=== PATIENT | male | born 1950 | race Caucasian/White ===

== ENCOUNTER 2019-04-27 16:35 | Observation (INO) ==
[2019-04-27] MEDS ORDERED: *HR* Dextrose 50 % in Water (Syg) 50 ML SYRINGE IVP ONE (16:45)
[2019-04-27 16:53] LABS: Hematocrit 39.2 % (37.5-50.1); Hemoglobin 13.4 g/dL (12.9-16.9); Mean Corpuscular HGB Conc 34.2 g/dL (31.6-35.5); Mean Corpuscular Hemoglobin 32.4 pg (28.0-33.3); Mean Corpuscular Volume 94.7 fL (83.0-100.0); Mean Platelet Volume 14.2 fL (9.4-12.4); Red Blood Count 4.14 M/mcL (4.19-5.50); White Blood Count 10.7 K/mcL (4.3-11.1)
[2019-04-27 17:02] LABS: INR 1.5; Prothrombin Time 16.9 Seconds (9.4-12.1)
[2019-04-27 17:05] LABS: Activated Partial Thrombo Time 32.4 Seconds (26.0-36.0)
[2019-04-27 17:12] LABS: Alanine Aminotransferase 19 Units/L (7-52); Albumin 3.4 g/dL (3.5-5.7); Albumin/Globulin Ratio 1.5 (1.1-2.2); Alkaline Phosphatase 50 Units/L (34-104); Aspartate Amino Transferase 18 Units/L (13-39); BUN/Creatinine Ratio 26 (6-26); Bilirubin,Direct 0.1 mg/dL (0.0-0.2); Bilirubin,Indirect 0.2 mg/dL (0.0-1.2); Bilirubin,Total 0.3 mg/dL (0.3-1.0); Blood Urea Nitrogen 16 mg/dL (8-23); Calcium 8.4 mg/dL (8.6-10.3); Carbon Dioxide 31 mEq/L (23-29); Chloride 104 mEq/L (98-107); Globulin 2.2 g/dL (2.4-3.5); Glucose 57 mg/dL (70-105); Osmolality,Calculated 301 (280-300); Platelet Count 96 K/mcL (140-400); Potassium 3.5 mEq/L (3.5-5.1); Sodium 146 mEq/L (136-145); Total Protein 5.6 g/dL (6.4-8.9); eGFR For African Americans > 60 (> 60); eGFR For Non-African Americans > 60 (> 60)
[2019-04-27 18:15] LABS: Troponin I < 0.03 ng/mL (< 0.04)
[2019-04-27] MEDS ORDERED: Isovue-370 500 ML BOTTLE IVP ONE (18:58)
--- NOTE | 2019-04-27 19:35 | Emergency Department Note ---
Disposition Clinical Impression: Altered mental status Qualifiers: Altered mental status type: unspecified Qualified Code(s): R41.82 - Altered mental status, unspecified Disposition: Admitted As Inpatient Condition: Fair [facility] Care Provider[facility] - Forms: ED Satisfaction Letter Time of Disposition: 22:47 Altered Mental Status HPI - General Chief Complaint: ED Altered Mental Status Stated Complaint: AMS Time Seen by Provider: 04/27/19 16:38 Source: EMS Mode of arrival: EMS Limitations: altered mental status Nursing Notes Reviewed: Yes Vital Signs Reviewed: Yes - History of Present Illness HPI Narrative: 68-year-old male history of dementia and Alzheimer's presents to the emergency department with altered mental status. He alsoright-sided weakness. He stated right-sided weakness is chronic but worsened where his last known well was at 1430. Said he also was not his normal talkative self her normally is alert and oriented and able to talk to have a normal conversation. Due to this is all new. They have not noticed any fevers no coughing no congestion. Otherwise patient has no other complaints. - Related Data Home Medications Medication Instructions Recorded Confirmed Ibuprofen [Motrin] 600 mg PO Q8HR PRN 12/15/15 12/15/15 Lurasidone HCl [Latuda] 80 mg PO HS 12/15/15 12/15/15 Multivitamin [Multi-Day Vitamins] 1 each PO DAILY 12/15/15 12/15/15 Thiamine (B-1) [Vitamin B-1] 100 mg PO DAILY 12/15/15 12/15/15 Acetaminophen [Tylenol] 975 mg PO Q12H PRN 04/27/19 04/27/19 Atorvastatin Calcium [Lipitor] 20 mg PO DAILY 04/27/19 04/27/19 Cetirizine HCl 10 mg PO DAILY 04/27/19 04/27/19 Chlorpheniramine/Dextromethorp 1 each PO Q4H PRN 04/27/19 04/27/19 [Coricidin Hbp Cough & Cold Tab] Divalproex (24 HR) [Depakote ER 1,000 mg PO HS 04/27/19 04/27/19 (24 HR)] Divalproex (24 HR) [Depakote ER 750 mg PO [facility] 04/27/19 04/27/19 (24 HR)] Docusate [Colace] 100 mg PO BID 04/27/19 04/27/19 GuaiFENesin Liq [Robitussin Liq] 200 mg PO TID PRN 04/27/19 04/27/19 Ibuprofen [Ibu] 800 mg PO DAILY 04/27/19 04/27/19 Insulin Glargine,Hum.rec.anlog 18 unit SQ DAILY 04/27/19 04/27/19 [Basaglar Kwikpen U-100] Insulin Regular, Human [Novolin R] 3 - 8 unit SQ QID 04/27/19 04/27/19 Ipratropium/Albuterol Neb [Duoneb] 3 ml IH Q6HR 04/27/19 04/27/19 LORazepam [Ativan] 0.5 mg PO DAILY 04/27/19 04/27/19 Lactulose 10 gm PO BID 04/27/19 04/27/19 Melatonin 3 mg PO HS 04/27/19 04/27/19 Sertraline [Zoloft] 100 mg PO DAILY 04/27/19 04/27/19 Tizanidine HCl [Zanaflex] 2 mg PO Q12H PRN 04/27/19 04/27/19 Tramadol HCl [Ultram] 50 mg PO BID PRN 04/27/19 04/27/19 glipiZIDE [Glipizide] 10 mg PO BID 04/27/19 04/27/19 Allergies Allergy/AdvReac Type Severity Reaction Status Date / Time No Known Allergies Allergy Verified 06/10/16 15:46 Limitations: ROS unobtainable due to patients medical condition Past Medical History - Past Medical History Attestation: Yes The following information was validated with the patient. Source: unable to obtain, old records reviewed Medical history: Reports: COPD, diabetes, hyperlipidemia Surgical history: Reports: no surgical history Psychiatric history: Reports: bipolar, depression, schizophrenia - Social History Smoking Status: Current every day smoker Smokeless Tobacco Status: No Alcohol use: Reports: none Drug use: Reports: none Physical Exam - General Limitations: altered mental status General appearance: alert, in no apparent distress - Head Head exam: atraumatic, normocephalic, normal inspection - Eye Eye exam: Present: normal appearance, PERRL, EOMI - ENT ENT exam: normal exam, normal oropharynx, mucous membranes moist - Neck Neck exam: Present: normal inspection, full ROM, trachea midline - Chest Chest inspection: Present: normal inspection, symmetric chest wall rise - Respiratory Respiratory exam: Present: normal lung sounds bilaterally - Cardiovascular Cardiovascular exam: Present: regular rate, normal rhythm, normal heart sounds - Abdominal Exam Abdominal exam: Present: soft, Non-Tender, normal bowel sounds. Absent: tenderness, distention, guarding, rebound, rigidity - Neurological Exam Neurological exam: Present: alert, CN II-XII intact. Absent: motor sensory deficit - Expanded Neurological Exam Patient oriented to: Present: person, place. Absent: time Speech: Present: fluid speech Cranial nerves: EOM function (II, III, IV, ): Normal, facial sensation (V): Normal, facial palsy (VII): Normal, spinal accessory function (XI): Normal, tongue deviation (XII): Normal Motor strength - LUE: 3/5 Motor strength - RUE: 3/5 Motor strength - LLE: 3/5 Motor strength - RLE: 3/5 Upper motor neuron exam: samra neglect: Absent bilaterally, pronator drift: Absent bilaterally Sensory exam upper extremity: light touch: Normal Sensory exam lower extremity: light touch: Normal Coma Scale Eye Opening: Spontaneous Coma Scale Motor Response: Obeys Commands Coma Scale Verbal Response: Confused Coma Scale Total: 14 - Skin Skin exam: Present: warm, dry, intact, normal color Course Vital Signs Temperature 99.5 F 04/27/19 16:43 Pulse Rate 111 04/27/19 16:43 Respiratory Rate 18 04/27/19 16:43 Blood Pressure 113/68 04/27/19 16:43 O2 Sat by Pulse Oximetry 97 04/27/19 16:43 Temperature 99.5 F 04/27/19 16:43 Pulse Rate 92 04/27/19 21:51 Respiratory Rate 16 04/27/19 21:51 Blood Pressure 113/70 04/27/19 21:51 O2 Sat by Pulse Oximetry 97 04/27/19 21:51 Oxygen Delivery Oxygen Delivery Room Air Altered Mental Status - MDM Narrative Medical decision making narrative: Stroke alert was called on this patient. CT came back with no acute findings. Labs can back no acute findings as well. CT Ena of the head and neck still pending at this time. There is no source of patient's confusion. We will admit the patient for further evaluation of the hospitalist team for possible MRI and stroke workup. Patient okay with this plan. Patient originally showed up he was hypoglycemic at 62 did give him 1 dose of D50 he responded well to that. Patient CT angiogram to the head and neck both came back negative. We did not find a source of patient's altered mental status. So he will be admitted for altered mental status for TIA/stroke workup for possible MRI. Patient's okay with this plan he did not meet criteria for having TPA and was not candidate for it per [facility] neurology who did see the patient at bedside through tele-monitor. I spoke with the hospitalist Dr. Dennison who agreed to admit the patient to their service for patient's admitted in stable condition. Chest X-Ray 04/27/19 16:44 IMPRESSION: No acute process. Old right rib fractures D/ / Jluis Lewis MD / Jluis Lewis MD Interpreting Provider: Jluis Lewis MD Head CT 04/27/19 16:44 IMPRESSION: No acute intracranial abnormality. Chronic involutional changes and minor chronic small vessel ischemic disease. Slight discordance of degree of ventriculomegaly can sometimes be seen in the setting of normal pressure hydrocephalus. Clinical correlation recommended. D/ / Roman Avina / Roman Avina Interpreting Provider: Roman Avina Head CTA 04/27/19 18:58 IMPRESSION: No acute arterial abnormality or hemodynamically significant arterial stenosis in the head or neck. D/ / Sraoj Iniguez / Saroj Iniguez Interpreting Provider: Saroj Iniguez Neck CTA 04/27/19 18:58 IMPRESSION: No acute arterial abnormality or hemodynamically significant arterial stenosis in the head or neck. D/ / Saroj Iniguez / Saroj Iniguez Interpreting Provider: Saroj Iniguez - Medical Records Medical records reviewed: Yes I reviewed the patient's medical records. - Lab Data Lab results reviewed: Yes I reviewed the patient's lab results. Result diagrams: 04/27/19 16:47 04/27/19 16:47 Lab Results 04/27/19 04/27/19 04/27/19 Range/Units 16:42 16:47 16:47 WBC 10.7 (4.3-11.1) K/mcL RBC 4.14 L (4.19-5.50) M/mcL Hgb 13.4 (12.9-16.9) g/dL Hct 39.2 (37.5-50.1) % MCV 94.7 (83.0-100.0) fL MCH 32.4 (28.0-33.3) pg MCHC 34.2 (31.6-35.5) g/dL RDW 14.0 (11.5-14.5) % Plt Count 96 L (140-400) K/mcL MPV 14.2 H (9.4-12.4) fL PT 16.9 H (9.4-12.1) Seconds INR 1.5 APTT 32.4 (26.0-36.0) Seconds Sodium (136-145) mEq/L Potassium (3.5-5.1) mEq/L Chloride (98-107) mEq/L Carbon Dioxide (23-29) mEq/L BUN (8-23) mg/dL Creatinine (0.70-1.30) mg/dL Est GFR ( Amer) (> 60) Est GFR (Non-Af Amer) (> 60) BUN/Creatinine Ratio (6-26) Glucose (70-105) mg/dL POC Glucose 65 L (70-99) mg/dL Calculated Osmolality (280-300) Calcium (8.6-10.3) mg/dL Total Bilirubin (0.3-1.0) mg/dL Direct Bilirubin (0.0-0.2) mg/dL Indirect Bilirubin (0.0-1.2) mg/dL AST (13-39) Units/L ALT (7-52) Units/L Alkaline Phosphatase (34-104) Units/L Ammonia (16-53) mcmol/L Troponin I (< 0.04) ng/mL Serum Total Protein (6.4-8.9) g/dL Albumin (3.5-5.7) g/dL Globulin (2.4-3.5) g/dL Albumin/Globulin Ratio (1.1-2.2) Urine Color (Yellow) Urine Clarity (Clear) Urine pH (5.0-8.0) pH Units Ur Specific [place] (1.010-1.025) Urine Protein (Neg-Trace) mg/dL Urine Glucose (UA) (Normal) mg/dL Urine Ketones (Negative) mg/dL Urine Blood (Negative) Urine Nitrite (Negative) Urine Bilirubin (Negative) Urine Urobilinogen (Normal) mg/dL Ur Leukocyte Esterase (Negative) Ur Culture Indicated? (NO) 04/27/19 04/27/19 04/27/19 Range/Units 16:47 16:47 16:52 WBC (4.3-11.1) K/mcL RBC (4.19-5.50) M/mcL Hgb (12.9-16.9) g/dL Hct (37.5-50.1) % MCV (83.0-100.0) fL MCH (28.0-33.3) pg MCHC (31.6-35.5) g/dL RDW (11.5-14.5) % Plt Count (140-400) K/mcL MPV (9.4-12.4) fL PT (9.4-12.1) Seconds INR APTT (26.0-36.0) Seconds Sodium 146 H (136-145) mEq/L Potassium 3.5 (3.5-5.1) mEq/L Chloride 104 (98-107) mEq/L Carbon Dioxide 31 H (23-29) mEq/L BUN 16 (8-23) mg/dL Creatinine 0.61 L (0.70-1.30) mg/dL Est GFR ( Amer) > 60 (> 60) Est GFR (Non-Af Amer) > 60 (> 60) BUN/Creatinine Ratio 26 (6-26) Glucose 57 L (70-105) mg/dL POC Glucose 230 H (70-99) mg/dL Calculated Osmolality 301 H (280-300) Calcium 8.4 L (8.6-10.3) mg/dL Total Bilirubin 0.3 (0.3-1.0) mg/dL Direct Bilirubin 0.1 (0.0-0.2) mg/dL Indirect Bilirubin 0.2 (0.0-1.2) mg/dL AST 18 (13-39) Units/L ALT 19 (7-52) Units/L Alkaline Phosphatase 50 (34-104) Units/L Ammonia 33 (16-53) mcmol/L Troponin I < 0.03 (< 0.04) ng/mL Serum Total Protein 5.6 L (6.4-8.9) g/dL Albumin 3.4 L (3.5-5.7) g/dL Globulin 2.2 L (2.4-3.5) g/dL Albumin/Globulin Ratio 1.5 (1.1-2.2) Urine Color (Yellow) Urine Clarity (Clear) Urine pH (5.0-8.0) pH Units Ur Specific [place] (1.010-1.025) Urine Protein (Neg-Trace) mg/dL Urine Glucose (UA) (Normal) mg/dL Urine Ketones (Negative) mg/dL Urine Blood (Negative) Urine Nitrite (Negative) Urine Bilirubin (Negative) Urine Urobilinogen (Normal) mg/dL Ur Leukocyte Esterase (Negative) Ur Culture Indicated? (NO) 04/27/19 Range/Units 21:22 WBC (4.3-11.1) K/mcL RBC (4.19-5.50) M/mcL Hgb (12.9-16.9) g/dL Hct (37.5-50.1) % MCV (83.0-100.0) fL MCH (28.0-33.3) pg MCHC (31.6-35.5) g/dL RDW (11.5-14.5) % Plt Count (140-400) K/mcL MPV (9.4-12.4) fL PT (9.4-12.1) Seconds INR APTT (26.0-36.0) Seconds Sodium (136-145) mEq/L Potassium (3.5-5.1) mEq/L Chloride (98-107) mEq/L Carbon Dioxide (23-29) mEq/L BUN (8-23) mg/dL Creatinine (0.70-1.30) mg/dL Est GFR ( Amer) (> 60) Est GFR (Non-Af Amer) (> 60) BUN/Creatinine Ratio (6-26) Glucose (70-105) mg/dL POC Glucose (70-99) mg/dL Calculated Osmolality (280-300) Calcium (8.6-10.3) mg/dL Total Bilirubin (0.3-1.0) mg/dL Direct Bilirubin (0.0-0.2) mg/dL Indirect Bilirubin (0.0-1.2) mg/dL AST (13-39) Units/L ALT (7-52) Units/L Alkaline Phosphatase (34-104) Units/L Ammonia (16-53) mcmol/L Troponin I (< 0.04) ng/mL Serum Total Protein (6.4-8.9) g/dL Albumin (3.5-5.7) g/dL Globulin (2.4-3.5) g/dL Albumin/Globulin Ratio (1.1-2.2) Urine Color Yellow (Yellow) Urine Clarity Clear (Clear) Urine pH 8.0 (5.0-8.0) pH Units Ur Specific [place] > 1.030 H (1.010-1.025) Urine Protein Negative (Neg-Trace) mg/dL Urine Glucose (UA) Normal (Normal) mg/dL Urine Ketones Trace H (Negative) mg/dL Urine Blood Negative (Negative) Urine Nitrite Negative (Negative) Urine Bilirubin Negative (Negative) Urine Urobilinogen Normal (Normal) mg/dL Ur Leukocyte Esterase Negative (Negative) Ur Culture Indicated? NO (NO) - Radiology Data Radiology results reviewed: Yes I reviewed the patient's radiology results. TPA Checklist - LKW: 3-4.5 hrs Add. Warnings/Precautions Patient/family understanding: The patient/family members have been counseled and understood the risk, benefit, and alternatives of treatment.
--- NOTE | 2019-04-27 20:02 | Emergency Department Note ---
Disposition Clinical Impression: Altered mental status Qualifiers: Altered mental status type: unspecified Qualified Code(s): R41.82 - Altered mental status, unspecified Disposition: Admitted As Inpatient Condition: Fair Time of Disposition: 22:47 General Adult HPI - General Chief complaint: ED Altered Mental Status Stated complaint: AMS Time Seen by Provider: 04/27/19 16:38 Source: EMS Mode of arrival: EMS Limitations: altered mental status - History of Present Illness Pain Scale: 0 - Related Data Home Medications Medication Instructions Recorded Confirmed Ibuprofen [Motrin] 600 mg PO BID PRN 12/15/15 04/27/19 Lurasidone HCl [Latuda] 80 mg PO HS 12/15/15 04/27/19 Multivitamin [Multi-Day Vitamins] 1 each PO DAILY 12/15/15 04/27/19 Thiamine (B-1) [Vitamin B-1] 100 mg PO DAILY 12/15/15 04/27/19 Acetaminophen [Tylenol] 975 mg PO Q12H PRN 04/27/19 04/27/19 Atorvastatin Calcium [Lipitor] 20 mg PO DAILY 04/27/19 04/27/19 Cetirizine HCl 10 mg PO DAILY 04/27/19 04/27/19 Chlorpheniramine/Dextromethorp 1 each PO Q4H PRN 04/27/19 04/27/19 [Coricidin Hbp Cough & Cold Tab] Divalproex (24 HR) [Depakote ER 1,000 mg PO HS 04/27/19 04/27/19 (24 HR)] Divalproex (24 HR) [Depakote ER 750 mg PO [facility] 04/27/19 04/27/19 (24 HR)] Docusate [Colace] 100 mg PO BID 04/27/19 04/27/19 GuaiFENesin Liq [Robitussin Liq] 200 mg PO TID PRN 04/27/19 04/27/19 Ibuprofen [Ibu] 800 mg PO DAILY 04/27/19 04/27/19 Insulin Glargine,Hum.rec.anlog 18 unit SQ DAILY 04/27/19 04/27/19 [Arinaglherson Scott U-100] Insulin Regular, Human [Novolin R] 3 - 8 unit SQ QID 04/27/19 04/27/19 Ipratropium/Albuterol Neb [Duoneb] 3 ml IH Q6HR 04/27/19 04/27/19 LORazepam [Ativan] 0.5 mg PO DAILY 04/27/19 04/27/19 Lactulose 10 gm PO BID 04/27/19 04/27/19 Melatonin 3 mg PO HS 04/27/19 04/27/19 Sertraline [Zoloft] 100 mg PO DAILY 04/27/19 04/27/19 Tizanidine HCl [Zanaflex] 2 mg PO Q12H PRN 04/27/19 04/27/19 Tramadol HCl [Ultram] 50 mg PO BID PRN 04/27/19 04/27/19 glipiZIDE [Glipizide] 10 mg PO BID 04/27/19 04/27/19 Allergies Allergy/AdvReac Type Severity Reaction Status Date / Time No Known Allergies Allergy Verified 06/10/16 15:46 Past Medical History - Past Medical History Medical history: Reports: COPD, diabetes, hyperlipidemia Surgical history: Reports: no surgical history Psychiatric history: Reports: bipolar, depression, schizophrenia - Social History Smoking Status: Current every day smoker Smokeless Tobacco Status: No Alcohol use: Reports: none Drug use: Reports: none Physical Exam - General Limitations: altered mental status General appearance: alert, in no apparent distress Course Vital Signs Temperature 99.5 F 04/27/19 16:43 Pulse Rate 111 04/27/19 16:43 Respiratory Rate 18 04/27/19 16:43 Blood Pressure 113/68 04/27/19 16:43 O2 Sat by Pulse Oximetry 97 04/27/19 16:43 Temperature 99.5 F 04/27/19 16:43 Pulse Rate 92 04/27/19 21:51 Respiratory Rate 16 04/27/19 23:05 Blood Pressure 125/78 04/27/19 23:05 O2 Sat by Pulse Oximetry 97 04/27/19 21:51 Oxygen Delivery Oxygen Delivery Room Air Medical Decision Making - Lab Data Result diagrams: 04/27/19 16:47 04/27/19 16:47 Lab Results 04/27/19 04/27/19 04/27/19 Range/Units 16:42 16:47 16:47 WBC 10.7 (4.3-11.1) K/mcL RBC 4.14 L (4.19-5.50) M/mcL Hgb 13.4 (12.9-16.9) g/dL Hct 39.2 (37.5-50.1) % MCV 94.7 (83.0-100.0) fL MCH 32.4 (28.0-33.3) pg MCHC 34.2 (31.6-35.5) g/dL RDW 14.0 (11.5-14.5) % Plt Count 96 L (140-400) K/mcL MPV 14.2 H (9.4-12.4) fL PT 16.9 H (9.4-12.1) Seconds INR 1.5 APTT 32.4 (26.0-36.0) Seconds Sodium (136-145) mEq/L Potassium (3.5-5.1) mEq/L Chloride (98-107) mEq/L Carbon Dioxide (23-29) mEq/L BUN (8-23) mg/dL Creatinine (0.70-1.30) mg/dL Est GFR ( Amer) (> 60) Est GFR (Non-Af Amer) (> 60) BUN/Creatinine Ratio (6-26) Glucose (70-105) mg/dL POC Glucose 65 L (70-99) mg/dL Calculated Osmolality (280-300) Calcium (8.6-10.3) mg/dL Total Bilirubin (0.3-1.0) mg/dL Direct Bilirubin (0.0-0.2) mg/dL Indirect Bilirubin (0.0-1.2) mg/dL AST (13-39) Units/L ALT (7-52) Units/L Alkaline Phosphatase (34-104) Units/L Ammonia (16-53) mcmol/L Troponin I (< 0.04) ng/mL Serum Total Protein (6.4-8.9) g/dL Albumin (3.5-5.7) g/dL Globulin (2.4-3.5) g/dL Albumin/Globulin Ratio (1.1-2.2) Urine Color (Yellow) Urine Clarity (Clear) Urine pH (5.0-8.0) pH Units Ur Specific [place] (1.010-1.025) Urine Protein (Neg-Trace) mg/dL Urine Glucose (UA) (Normal) mg/dL Urine Ketones (Negative) mg/dL Urine Blood (Negative) Urine Nitrite (Negative) Urine Bilirubin (Negative) Urine Urobilinogen (Normal) mg/dL Ur Leukocyte Esterase (Negative) Ur Culture Indicated? (NO) 04/27/19 04/27/19 04/27/19 Range/Units 16:47 16:47 16:52 WBC (4.3-11.1) K/mcL RBC (4.19-5.50) M/mcL Hgb (12.9-16.9) g/dL Hct (37.5-50.1) % MCV (83.0-100.0) fL MCH (28.0-33.3) pg MCHC (31.6-35.5) g/dL RDW (11.5-14.5) % Plt Count (140-400) K/mcL MPV (9.4-12.4) fL PT (9.4-12.1) Seconds INR APTT (26.0-36.0) Seconds Sodium 146 H (136-145) mEq/L Potassium 3.5 (3.5-5.1) mEq/L Chloride 104 (98-107) mEq/L Carbon Dioxide 31 H (23-29) mEq/L BUN 16 (8-23) mg/dL Creatinine 0.61 L (0.70-1.30) mg/dL Est GFR ( Amer) > 60 (> 60) Est GFR (Non-Af Amer) > 60 (> 60) BUN/Creatinine Ratio 26 (6-26) Glucose 57 L (70-105) mg/dL POC Glucose 230 H (70-99) mg/dL Calculated Osmolality 301 H (280-300) Calcium 8.4 L (8.6-10.3) mg/dL Total Bilirubin 0.3 (0.3-1.0) mg/dL Direct Bilirubin 0.1 (0.0-0.2) mg/dL Indirect Bilirubin 0.2 (0.0-1.2) mg/dL AST 18 (13-39) Units/L ALT 19 (7-52) Units/L Alkaline Phosphatase 50 (34-104) Units/L Ammonia 33 (16-53) mcmol/L Troponin I < 0.03 (< 0.04) ng/mL Serum Total Protein 5.6 L (6.4-8.9) g/dL Albumin 3.4 L (3.5-5.7) g/dL Globulin 2.2 L (2.4-3.5) g/dL Albumin/Globulin Ratio 1.5 (1.1-2.2) Urine Color (Yellow) Urine Clarity (Clear) Urine pH (5.0-8.0) pH Units Ur Specific [place] (1.010-1.025) Urine Protein (Neg-Trace) mg/dL Urine Glucose (UA) (Normal) mg/dL Urine Ketones (Negative) mg/dL Urine Blood (Negative) Urine Nitrite (Negative) Urine Bilirubin (Negative) Urine Urobilinogen (Normal) mg/dL Ur Leukocyte Esterase (Negative) Ur Culture Indicated? (NO) 04/27/19 Range/Units 21:22 WBC (4.3-11.1) K/mcL RBC (4.19-5.50) M/mcL Hgb (12.9-16.9) g/dL Hct (37.5-50.1) % MCV (83.0-100.0) fL MCH (28.0-33.3) pg MCHC (31.6-35.5) g/dL RDW (11.5-14.5) % Plt Count (140-400) K/mcL MPV (9.4-12.4) fL PT (9.4-12.1) Seconds INR APTT (26.0-36.0) Seconds Sodium (136-145) mEq/L Potassium (3.5-5.1) mEq/L Chloride (98-107) mEq/L Carbon Dioxide (23-29) mEq/L BUN (8-23) mg/dL Creatinine (0.70-1.30) mg/dL Est GFR ( Amer) (> 60) Est GFR (Non-Af Amer) (> 60) BUN/Creatinine Ratio (6-26) Glucose (70-105) mg/dL POC Glucose (70-99) mg/dL Calculated Osmolality (280-300) Calcium (8.6-10.3) mg/dL Total Bilirubin (0.3-1.0) mg/dL Direct Bilirubin (0.0-0.2) mg/dL Indirect Bilirubin (0.0-1.2) mg/dL AST (13-39) Units/L ALT (7-52) Units/L Alkaline Phosphatase (34-104) Units/L Ammonia (16-53) mcmol/L Troponin I (< 0.04) ng/mL Serum Total Protein (6.4-8.9) g/dL Albumin (3.5-5.7) g/dL Globulin (2.4-3.5) g/dL Albumin/Globulin Ratio (1.1-2.2) Urine Color Yellow (Yellow) Urine Clarity Clear (Clear) Urine pH 8.0 (5.0-8.0) pH Units Ur Specific [place] > 1.030 H (1.010-1.025) Urine Protein Negative (Neg-Trace) mg/dL Urine Glucose (UA) Normal (Normal) mg/dL Urine Ketones Trace H (Negative) mg/dL Urine Blood Negative (Negative) Urine Nitrite Negative (Negative) Urine Bilirubin Negative (Negative) Urine Urobilinogen Normal (Normal) mg/dL Ur Leukocyte Esterase Negative (Negative) Ur Culture Indicated? NO (NO) Attestation Statement - Attestation Attestation: I examined this patient and my medical decision-making was reviewed with the Resident Physician. I agree with the documented findings, disposition and treatment plan as described except to the extent set forth below. Patient is 68-year-old gentleman with history of dementia that presents with change in mental status. Per the skilled nursing the patient significantly weaker on the right side and also has been since this afternoon. There is no reported trauma no history of fever or infectious symptoms. Physical exam patient is awake alert able to answer some questions there is mild weakness present on the right side. Medical decision management the patient was evaluated from a acute stroke standpoint had a stroke neurology evaluation was deemed the patient not to be a TPA candidate recommended CTA of the head and neck. There is no evidence of large vessel occlusion on the CTA of the patient's infectious workup has been negative so far we are currently still waiting on a urinalysis. Given the patient's symptoms patient will be admitted to the hospitalist service or evaluation of possible stroke/TIA I personally supervised and was present for the william/critical portions of the following procedures completed by the resident:EKG.
[2019-04-27 21:38] LABS: Bilirubin,Urine Negative (Negative); Blood,Urine Negative (Negative); Clarity,Urine Clear (Clear); Color,Urine Yellow (Yellow); Glucose,Urine (UA) Normal (Normal); Ketones,Urine Trace mg/dL (Negative); Leukocyte Esterase,Urine Negative (Negative); Nitrite,Urine Negative (Negative); Protein,Urine Negative (Neg-Trace); Specific Gravity,Urine > 1.030 (1.010-1.025); Urobilinogen,Urine Normal (Normal)
[2019-04-27] MEDS ORDERED: Divalproex (24 HR) 500 MG TABLET PO SCH (22:39)
[2019-04-27] MEDS ORDERED: DEXTROMETHORP PO PRN (22:39)
[2019-04-27] MEDS ORDERED: traMADol 50 MG TABLET PO PRN (22:39)
[2019-04-27] MEDS ORDERED: GuaiFENesin Liq 200 MG/10 ML UDC PO PRN (22:39)
[2019-04-27] MEDS ORDERED: CHLORPHENIRAMINE PO PRN (22:39)
[2019-04-27] MEDS ORDERED: tiZANidine 4 MG TABLET PO PRN (22:39)
[2019-04-27] MEDS ORDERED: Acetaminophen 325 MG TABLET PO PRN (22:41)
[2019-04-27] MEDS ORDERED: Ibuprofen 400 MG TABLET PO PRN (22:41)
[2019-04-27] MEDS ORDERED: *HR* Dextrose 50 % in Water (Syg) 50 ML SYRINGE IVP PRN (22:41)
[2019-04-27] MEDS ORDERED: Dextrose Gel 15 GM/37.5 ML TUBE PO PRN ×2 (22:41)
[2019-04-27] MEDS ORDERED: Naloxone 0.4 MG/ML INJ IVP PRN (22:41)
[2019-04-27] MEDS ORDERED: Ringers Solution, Lactated 1,000 ML IVC SCH (23:00)
[2019-04-27] MEDS ORDERED: Aspirin 325 MG TABLET PO ONE (23:13)
--- NOTE | 2019-04-27 23:29 | Internal Med History&Physical ---
Date of Encounter: 04/27/19 Time of Encounter: 23:28 Internal Medicine - H&P: HPI Chief complaint: AMS Admitted From: Long-term Nursing Facility Plans for Post Hospital Care: Transfer [facility] History of present illness: Christian Duvall is a 68-year-old man with dementia, COPD, diabetes, hyp erlipidemia, psychiatric disorders as well as chronic right sided weakness which is presumably secondary to a prior stroke who was brought in from long-term the complaint of altered mental status and worsening of his right-sided weakness. It was stated that he is normally talkative, alert and oriented, able to have a normal conversation but that all this had ceased since 2:30 PM this afternoon. In the ER he was hemodynamically stable. Fingerstick glucose was noted at 57mg/dl so he was given D50. Stroke alert was called and CT studies were unrevealing. He is admitted for further care. On my assessment he offers no complaints but he is notably not conversant and just stares in response to most questions asked. Vitals: Reviewed General: Well-developed white male, somewhat unkempt lying in bed in no acute distress. Responsive to verbal stimuli. Skin: Warm and dry. HEENT: Dry mucous membranes. No conjunctivae pallor. Neck: No lymphadenopathy. No JVD. No carotid bruits. No palpable thyroid. Chest: Normal thoracic expansion. Normal breath sounds. Clear to auscultation. Heart: Normal S1 & S2; rhythmic. No rubs or murmurs. Abdomen: Non-distended, soft and non-tender to palpation. No peritoneal reaction. Extremities: 3/5 right arm strength. 4/5 left arm and bilateral lower extremity strength. Neurological: Awake, alert and oriented to person but not place and time. Psych: Affect flat. Assessment/Plan 1. Acute encephalopathy: It is unclear to me what his baseline is as we have gotten only 3rd hand report. There are no signs of infection apparent or exogenous intoxication. I note he takes Depakote and I do not know if he takes it for seizure disorder but if that is the case, a post-ictal state from an unwitnessed convulsion is a differential. My physical exam is notable for more pronounced weakness in his right arm which seemingly is not new and may stem from an old infarct or the orthopedic surgical intervention performed on his right shoulder. He had mild hypoglycemia upon arrival but has responded to dextrose adequately. We will monitor him overnight, schedule him for an MRI in the morning to rule out acute CVA after giving loading dose of aspirin, monitor his glycemic values, check a valproate level, place on IVF as he appears clinically dehydrated with mild hypernatremia with an elevated urinary specific gravity. 2. Diabetes: A1C in 2016 was 6.4%. Will repeat. 3. Hyperlipidemia: Continue atorvastatin. 4. COPD: Currently asymptomatic. Place on nebulizer as needed. 5. Thrombocytopenia: New onset. No bleeding episodes. There is a history of alcoholism reported and may stem from this. Will monitor. Past Med Surg Social Fam HX - Past Medical History Medical history: COPD, diabetes, hyperlipidemia Additional medical history: ETOH with ETOH induced dementia. irritability and anger. anemia. FTT Psychiatric history: bipolar, depression, schizophrenia - Past Surgical History Surgical History: no surgical history Additional surgical history: patient denies any past surgeries - Social History Smoking Status: Current every day smoker Smokeless Tobacco Status: No Alcohol use: none Drug use: none Internal Medicine - H&P: Meds Ibuprofen [Motrin] 600 mg PO BID PRN 12/15/15 [History] Lurasidone HCl [Latuda] 80 mg PO HS 12/15/15 [History] Multivitamin [Multi-Day Vitamins] 1 each PO DAILY 12/15/15 [History] Thiamine (B-1) [Vitamin B-1] 100 mg PO DAILY 12/15/15 [History] Acetaminophen [Tylenol] 975 mg PO Q12H PRN 04/27/19 [History] Atorvastatin Calcium [Lipitor] 20 mg PO DAILY 04/27/19 [History] Cetirizine HCl 10 mg PO DAILY 04/27/19 [History] Chlorpheniramine/Dextromethorp [Coricidin Hbp Cough & Cold Tab] 1 each PO Q4H PRN 04/27/19 [History] Divalproex (24 HR) [Depakote ER (24 HR)] 1,000 mg PO HS 04/27/19 [History] Divalproex (24 HR) [Depakote ER (24 HR)] 750 mg PO QAM 04/27/19 [History] Docusate [Colace] 100 mg PO BID 04/27/19 [History] GuaiFENesin Liq [Robitussin Liq] 200 mg PO TID PRN 04/27/19 [History] Ibuprofen [Ibu] 800 mg PO DAILY 04/27/19 [History] Insulin Glargine,Hum.rec.anlog [Basaglar Kwikpen U-100] 18 unit SQ DAILY 04/27/19 [History] Insulin Regular, Human [Novolin R] 3 - 8 unit SQ QID 04/27/19 [History] Ipratropium/Albuterol Neb [Duoneb] 3 ml IH Q6HR 04/27/19 [History] LORazepam [Ativan] 0.5 mg PO DAILY 04/27/19 [History] Lactulose 10 gm PO BID 04/27/19 [History] Melatonin 3 mg PO HS 04/27/19 [History] Sertraline [Zoloft] 100 mg PO DAILY 04/27/19 [History] Tizanidine HCl [Zanaflex] 2 mg PO Q12H PRN 04/27/19 [History] Tramadol HCl [Ultram] 50 mg PO BID PRN 04/27/19 [History] glipiZIDE [Glipizide] 10 mg PO BID 04/27/19 [History] Allergy/AdvReac Type Severity Reaction Status Date / Time No Known Allergies Allergy Verified 06/10/16 15:46 All Systems PM: A 10-system review of systems was performed and is negative for pertinent findings except as documented above in the HPI.Family history reviewed and found non-contributory. - Constitutional Vitals: Temp Pulse Resp BP Pulse Ox 99.5 F 92 16 125/78 97 04/27/19 16:43 04/27/19 21:51 04/27/19 23:05 04/27/19 23:05 04/27/19 21:51 Exam: . Internal Med - H&P Results - Labs CBC & Chem 7: 04/27/19 16:47 04/27/19 16:47 Labs: Short CBC 04/27/19 Range/Units 16:47 WBC 10.7 (4.3-11.1) K/mcL Hgb 13.4 (12.9-16.9) g/dL Hct 39.2 (37.5-50.1) % Plt Count 96 L (140-400) K/mcL BMP 04/27/19 16:47 Sodium 146 H Potassium 3.5 Chloride 104 Carbon Dioxide 31 H BUN 16 Creatinine 0.61 L Glucose 57 L Calcium 8.4 L Cardiac Enzymes 04/27/19 Range/Units 16:47 Troponin I < 0.03 (< 0.04) ng/mL Liver Function 04/27/19 Range/Units 16:47 Total Bilirubin 0.3 (0.3-1.0) mg/dL Direct Bilirubin 0.1 (0.0-0.2) mg/dL AST 18 (13-39) Units/L ALT 19 (7-52) Units/L Alkaline Phosphatase 50 (34-104) Units/L Albumin 3.4 L (3.5-5.7) g/dL Urine 04/27/19 Range/Units 21:22 Urine Color Yellow (Yellow) Urine Clarity Clear (Clear) Urine pH 8.0 (5.0-8.0) pH Units Ur Specific [place] > 1.030 H (1.010-1.025) Urine Protein Negative (Neg-Trace) mg/dL Urine Glucose (UA) Normal (Normal) mg/dL - Impressions ITS Impressions Chest X-Ray 04/27/19 16:44 IMPRESSION: No acute process. Old right rib fractures D/ / Jluis Lewis MD / Jluis Lewis MD Interpreting Provider: Jluis Lewis MD Head CT 04/27/19 16:44 IMPRESSION: No acute intracranial abnormality. Chronic involutional changes and minor chronic small vessel ischemic disease. Slight discordance of degree of ventriculomegaly can sometimes be seen in the setting of normal pressure hydrocephalus. Clinical correlation recommended. D/ / Roman Avina / Roman Avina Interpreting Provider: Roman Avina Head CTA 04/27/19 18:58 IMPRESSION: No acute arterial abnormality or hemodynamically significant arterial stenosis in the head or neck. D/ / Saroj Iniguez / Saroj Iniguez Interpreting Provider: Saroj Iniguez Neck CTA 04/27/19 18:58 IMPRESSION: No acute arterial abnormality or hemodynamically significant arterial stenosis in the head or neck. D/ / Saroj Iniguez / Saroj Iniguez Interpreting Provider: Saroj Iniguez - Time Spent With Patient Total time spent is greater than 50% in coordination of care (as documented) at patient's floor/unit and/or counseling patient: Greater than 35 minutes
[2019-04-28] MEDS: Ipratropium/Albuterol Neb 3 ML IH SCH ×5 (00:06→22:36)
[2019-04-28 02:51] LABS: Mean Corpuscular HGB Conc 33.8 g/dL (31.6-35.5); Mean Corpuscular Hemoglobin 31.8 pg (28.0-33.3); Mean Corpuscular Volume 94.2 fL (83.0-100.0); Red Cell Distribution Width 13.9 % (11.5-14.5)
[2019-04-28 02:53] LABS: Basophils # 0.1 K/mcL (0.0-0.2); Basophils % 0.5 %; Eosinophils # 0.2 K/mcL (0.0-0.6); Eosinophils % 1.4 %; Hematocrit 39.1 % (37.5-50.1); Hemoglobin 13.2 g/dL (12.9-16.9); Immature Granulocytes % 0.4 % (0-4); Immature Platelets 29.3 % (1.1-6.1); Lymphocytes # 1.7 K/mcL (0.6-4.6); Lymphocytes % 16.2 %; Neutrophils # 7.7 K/mcL (1.6-8.9); Red Blood Count 4.15 M/mcL (4.19-5.50); Segmented Neutrophils % 72.5 %; White Blood Count 10.6 K/mcL (4.3-11.1)
[2019-04-28 02:59] LABS: Platelet Count 67 K/mcL (140-400)
[2019-04-28 03:07] LABS: BUN/Creatinine Ratio 23 (6-26); Blood Urea Nitrogen 12 mg/dL (8-23); Calcium 8.2 mg/dL (8.6-10.3); Carbon Dioxide 25 mEq/L (23-29); Chloride 106 mEq/L (98-107); Glucose 59 mg/dL (70-105); Osmolality,Calculated 288 (280-300); Potassium 3.2 mEq/L (3.5-5.1); Sodium 140 mEq/L (136-145); eGFR For African Americans > 60 (> 60); eGFR For Non-African Americans > 60 (> 60)
[2019-04-28] MEDS ORDERED: Potassium Chloride Elixir 20 MEQ/15 ML UDC PO ONE (04:21)
--- NOTE | 2019-04-28 04:24 | Event Note ---
Date of Encounter: 04/28/19 Time of Encounter: 04:22 Valproate level noted elevated on check. Toxicity with this medication is frequently associated with mild to moderate lethargy and [employer]ER dysfunction therefore given his current symptoms, it would be prudent to hold off on continuing these medications until it is down to a safer level and his mental status stabilizes before resumption.
[2019-04-28] MEDS ORDERED: *HR* Heparin 5,000 UNIT/ML VIAL SQ SCH (06:00)
[2019-04-28] MEDS: Aspirin 81 MG TAB.CHEW PO SCH (07:48)
[2019-04-28] MEDS: Loratadine 10 MG TABLET PO SCH (07:48)
[2019-04-28] MEDS: Multivit/Ca/Min/Fe/FA 1 TAB TABLET PO SCH (07:48)
[2019-04-28] MEDS: Insulin LISPRO 300 UNITS/3 ML VIAL SQ SCH ×4 (07:48→20:39)
[2019-04-28] MEDS: Thiamine (B-1) 100 MG TABLET PO SCH (07:48)
[2019-04-28] MEDS: Insulin DETEMIR 100 UNIT/ML X5UNITS SQ SCH (07:49)
--- NOTE | 2019-04-28 08:52 | Internal Med Progress Note ---
Hospitalist Progress Note - Encounter Date of Encounter: 04/28/19 Time of Encounter: 08:52 - Subjective Interval History: Patient was seen and examined at bedside-appears groggy but will follow simple commands. Awaiting MRI at this time-nursing staff attempted to contact patient's son in order to obtain MRI clearance - Exam Vitals: Temp Pulse Resp BP Pulse Ox 98.8 F 75 16 99/63 96 04/28/19 07:48 04/28/19 07:48 04/28/19 07:48 04/28/19 07:48 04/28/19 07:48 Exam: General: Well-developed white male, somewhat unkempt lying in bed in no acute distress. Responsive to verbal stimuli. Skin: Warm and dry. HEENT: Dry mucous membranes. No conjunctivae pallor. Neck: No lymphadenopathy. No JVD. No carotid bruits. No palpable thyroid. Chest: Normal thoracic expansion. Normal breath sounds. Clear to auscultation. Heart: Normal S1 & S2; rhythmic. No rubs or murmurs. Abdomen: Non-distended, soft and non-tender to palpation. No peritoneal reaction. Extremities: 3/5 right arm strength. 4/5 left arm and bilateral lower extremity strength. Neurological: Groggy oriented to person but not place and time. Psych: Affect flat. - Assessment and Plan (1) Acute encephalopathy Current Visit: Yes Status: Acute Assessment and Plan: According to nursing staff at [facility] patient is normally very talkative and oriented. Does not appear to be any signs of infection or intoxication. He did have a slightly elevated Depakote level which we will hold for now and recheck. Unsure if he has history of seizures-CT of head No acute intracranial abnormality. Chronic involutional changes and minor chronic small vessel ischemic disease. Slight discordance of degree of ventriculomegaly can sometimes be seen in the setting of normal pressure hydrocephalus. Clinical correlation recommended. CTA of head and neck No acute arterial abnormality or hemodynamically significant arterial stenosis in the head or neck. MRI pending consult neurology as needed Has hx of dementia Hold sedating medications (2) Hyperlipemia Current Visit: No Status: Chronic Assessment and Plan: Continue statin (3) COPD (chronic obstructive pulmonary disease) Current Visit: Yes Status: Acute Assessment and Plan: Does not appear to be in exacerbation at this time continue with nebulizers as needed (4) Thrombocytopenia Current Visit: Yes Status: Acute Assessment and Plan: Appears to be new onset no bleeding noted patient does have a past history of drug and alcohol use may be stemming from this will continue to monitor closely (5) DVT prophylaxis Current Visit: Yes Status: Acute Assessment and Plan: SCDs due to thrombocytopenia - Time Spent with Patient Total time spent is greater than 50% in coordination of care (as documented) at patient's floor/unit and/or counseling patient: Internal Medicine: Result - Labs CBC & Chem 7: 04/28/19 00:48 04/28/19 00:48 Labs: Short CBC 04/27/19 04/28/19 Range/Units 16:47 00:48 WBC 10.7 10.6 (4.3-11.1) K/mcL Hgb 13.4 13.2 (12.9-16.9) g/dL Hct 39.2 39.1 (37.5-50.1) % Plt Count 96 L 67 L (140-400) K/mcL Neutrophils # 7.7 (1.6-8.9) K/mcL BMP 04/27/19 04/28/19 16:47 00:48 Sodium 146 H 140 Potassium 3.5 3.2 L Chloride 104 106 Carbon Dioxide 31 H 25 BUN 16 12 Creatinine 0.61 L 0.52 L Glucose 57 L 59 L Calcium 8.4 L 8.2 L Cardiac Enzymes 04/27/19 Range/Units 16:47 Troponin I < 0.03 (< 0.04) ng/mL Liver Function 04/27/19 Range/Units 16:47 Total Bilirubin 0.3 (0.3-1.0) mg/dL Direct Bilirubin 0.1 (0.0-0.2) mg/dL AST 18 (13-39) Units/L ALT 19 (7-52) Units/L Alkaline Phosphatase 50 (34-104) Units/L Albumin 3.4 L (3.5-5.7) g/dL Urine 04/27/19 Range/Units 21:22 Urine Color Yellow (Yellow) Urine Clarity Clear (Clear) Urine pH 8.0 (5.0-8.0) pH Units Ur Specific [place] > 1.030 H (1.010-1.025) Urine Protein Negative (Neg-Trace) mg/dL Urine Glucose (UA) Normal (Normal) mg/dL - ABG Interpretation ABG results: PT/INR, D-dimer PT 16.9 Seconds (9.4-12.1) H 04/27/19 16:47 - Impressions Impressions Chest X-Ray 04/27/19 16:44 IMPRESSION: No acute process. Old right rib fractures D/ / Jluis Lewis MD / Jluis Lewis MD Interpreting Provider: Jluis Lewis MD Head CT 04/27/19 16:44 IMPRESSION: No acute intracranial abnormality. Chronic involutional changes and minor chronic small vessel ischemic disease. Slight discordance of degree of ventriculomegaly can sometimes be seen in the setting of normal pressure hydrocephalus. Clinical correlation recommended. D/ / Roman Avina / Roman Avina Interpreting Provider: Roman Avina Head CTA 04/27/19 18:58 IMPRESSION: No acute arterial abnormality or hemodynamically significant arterial stenosis in the head or neck. D/ / Saroj Iniguez / Saroj Iniguez Interpreting Provider: Saroj Iniguez Neck CTA 04/27/19 18:58 IMPRESSION: No acute arterial abnormality or hemodynamically significant arterial stenosis in the head or neck. D/ / Saroj Iniguez / Saroj Iniguez Interpreting Provider: Saroj Iniguez Consult Discharge Plan - Plan [facility] [Primary Care Provider[facility] - (2) Hyperlipemia Qualifiers: Hyperlipidemia type: unspecified Qualified Code(s): E78.5 - Hyperlipidemia, unspecified (3) COPD (chronic obstructive pulmonary disease) Qualifiers: COPD type: unspecified COPD Qualified Code(s): J44.9 - Chronic obstructive pulmonary disease, unspecified
[2019-04-28] MEDS ORDERED: Divalproex (24 HR) 250 MG TABLET PO SCH (09:00)
[2019-04-28] MEDS ORDERED: *HR* LORazepam 0.5 MG TABLET PO SCH (09:00)
--- NOTE | 2019-04-28 11:13 | Event Note ---
Date of Encounter: 04/28/19 Time of Encounter: 11:13 Notify per nursing staff the patient is very difficult to arouse-he was unable to eat his breakfast. Upon assessment patient's SPO2 is 97% he does arouse to tactile stimuli oriented to name only blood glucose within normal limits. We will order a stat CT of head MRI pending at this time continue with neuro checks
--- NOTE | 2019-04-28 13:58 | Event Note ---
Date of Encounter: 04/28/19 Time of Encounter: 13:57 Patient is awake alert appropriate following simple commands oriented to name and place. Continue to wait for MRI -patient has right-sided upper arm weakness rest of assessment is within normal limits. Patient ate lunch without any assistance
[2019-04-28] MEDS: Melatonin 3 MG TABLET PO SCH (20:44)
--- NOTE | 2019-04-28 21:29 | Neurology - Consult Note ---
Date of Encounter: 04/28/19 Time of Encounter: 16:00 Assessment and Plan (1) Acute encephalopathy Current Visit: Yes Status: Acute etiology unclear but due to negative MRI of brain this is likely not secondary to primary HVAC/R INSTRUCTOR pathology. however, he looks significantly Parkinsonian and he is not on dopa therapy. 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 However, this is not confirmed. If he has no such history of antipsychotic exposure then he may have Parkinson disease or even Parkinson plus syndrome with dementia as part of the syndrome. He may benefit from outpatient Neurology evaluation in this regard. But i would not initiate dopa therapy at this time. Agree with holding depakote and resume quickly. Then the dosage should be adjusted accordingly. Please continue medical and supportive care (2) Right arm weakness Current Visit: Yes Status: Acute I observe slight right arm weakness however, this may be masked by rhythmic resting tremors to the left side and significant cogwheel rigidity and in patients with idiopathic Parkinson disease there may be unilateral preference to tremor and muscle rigidity. Patient also has previous history of CVA, although this can not be confirmed on current MRI of brain. Another possibility would cervical disc disease causing right arm weakness however, he denies radicular type of pain. I would recommend no further testing. He may benefit from PT and speech therapy. History of Present Illness Chief complaint: right sided weakness and altered mental status HPI: Mr. Duvall is a 68 year old male with PMH significant for dementia, history of CVA with chronic right sided weakness, COPD, psychiatric disorder who was sent from senior living due to altered mental and worsening right sided weakness. Vanessa ent is unable to provide detailed information regarding his current illnesses. Reportedly the patient has had prior history of CVA and chronic right sided weakness however, no prior imaging studies are available for review. It was reported that at baseline the patient is 'talkative' but at the time of this interview he is not. He has resting tremors to the left hand and arm but not the right side. However, after some instruction he is able to use his right arm although there may be a slight drift to the right side. He is able to lift left leg off the bed. Patient has Parkinsonian features, with rest tremors, cogwheel rigidity and bradykinesis however, he is not on dopa therapy. At this time no information available whether he has had prior exposure to antipsychotic therapy as he does have psychiatric disorder listed. Patient does not appear to be in acute distress. He is alert and awake but has significant bradykinesis and has reduced verbal output. CT of head and MRI of brain images reviewed. There is evidence of diffuse cerebral atrophy. I saw no evidence of prior stroke. It was thought that the third and lateral ventricles are enlarged but mostly secondary to cerebral atrophy less likely secondary to NPH. Past Med Surg Social Fam HX - Past Medical History Medical history: COPD, dementia, diabetes, hyperlipidemia Additional medical history: ETOH with ETOH induced dementia. irritability and anger. anemia. FTT Psychiatric history: bipolar, depression, schizophrenia - Past Surgical History Surgical History: no surgical history Additional surgical history: patient denies any past surgeries - Social History Smoking Status: Current every day smoker Smokeless Tobacco Status: No Alcohol use: none Drug use: none Medications and Allergies Ibuprofen [Motrin] 600 mg PO BID PRN 12/15/15 [History] Lurasidone HCl [Latuda] 80 mg PO HS 12/15/15 [History] Multivitamin [Multi-Day Vitamins] 1 each PO DAILY 12/15/15 [History] Thiamine (B-1) [Vitamin B-1] 100 mg PO DAILY 12/15/15 [History] Acetaminophen [Tylenol] 975 mg PO Q12H PRN 04/27/19 [History] Atorvastatin Calcium [Lipitor] 20 mg PO DAILY 04/27/19 [History] Cetirizine HCl 10 mg PO DAILY 04/27/19 [History] Chlorpheniramine/Dextromethorp [Coricidin Hbp Cough & Cold Tab] 1 each PO Q4H PRN 04/27/19 [History] Divalproex (24 HR) [Depakote ER (24 HR)] 1,000 mg PO HS 04/27/19 [History] Divalproex (24 HR) [Depakote ER (24 HR)] 750 mg PO QAM 04/27/19 [History] Docusate [Colace] 100 mg PO BID 04/27/19 [History] GuaiFENesin Liq [Robitussin Liq] 200 mg PO TID PRN 04/27/19 [History] Ibuprofen [Ibu] 800 mg PO DAILY 04/27/19 [History] Insulin Glargine,Hum.rec.anlog [Basaglar Kwikpen U-100] 18 unit SQ DAILY 04/27/19 [History] Insulin Regular, Human [Novolin R] 3 - 8 unit SQ QID 04/27/19 [History] Ipratropium/Albuterol Neb [Duoneb] 3 ml IH Q6HR 04/27/19 [History] LORazepam [Ativan] 0.5 mg PO DAILY 04/27/19 [History] Lactulose 10 gm PO BID 04/27/19 [History] Melatonin 3 mg PO HS 04/27/19 [History] Sertraline [Zoloft] 100 mg PO DAILY 04/27/19 [History] Tizanidine HCl [Zanaflex] 2 mg PO Q12H PRN 04/27/19 [History] Tramadol HCl [Ultram] 50 mg PO BID PRN 04/27/19 [History] glipiZIDE [Glipizide] 10 mg PO BID 04/27/19 [History] Allergy/AdvReac Type Severity Reaction Status Date / Time No Known Allergies Allergy Verified 06/10/16 15:46 All Systems: The remainder of the systems were reviewed and are negative - Constitutional Constitutional ROS IM: chills (no), daytime sleepiness (no), excessive sweating (no), fatigue (yes), fever(s) (no), frequent falls (Not knonw), headache(s) (no) - Nose, Mouth, Throat Nose, mouth and throat: abnormal hearing (no), dizziness (no), dry mouth (no), dysphagia (no), headache(s) (no) - Respiratory Respiratory IM: cough (no), dyspnea (no), hemoptysis (no), dyspnea on exertion (no) - Gastrointestinal Gastrointestinal: abdominal pain (no) - Musculoskeletal Musculoskeletal ROS IM: abnormal gait (yes) - Neurological Neurological ROS: abnormal gait (Unable to walk), headache(s) (no), memory loss (yes), weakness (right arm weakness) Physical Examination - Vital Signs Vital Signs: Initial Vital Signs Temp Pulse Resp BP Pulse Ox 99.5 F 111 18 113/68 97 04/27/19 16:43 04/27/19 16:43 04/27/19 16:43 04/27/19 16:43 04/27/19 16:43 - Constitutional General appearance: older than stated age - Neurologic Sensorimotor examination: other (Grossly intact) Detailed motor examination: grossly full strength in all extremities (slight right arm weakness. Resting tremors to the left arm. significant diffuse cogwheeling rigidity) Motor examination - right side: 4/5: deltoids, biceps, triceps, wrist flexion, wrist extension, mat cutter, hip flexors, tibialis Anterior, quadriceps, toe extension (EHL), plantarflexion Motor examination - left side: 5/5: deltoids, biceps, triceps, wrist flexion, wrist extension, hip flexors, mat cutter, quadriceps, tibialis Anterior, toe extension (EHL), plantarflexion Detailed sensory examination: other (Grossly intact) Posture: other (None) Reflex and gait examination: other (Gait not tested) Reflexes: Biceps: 2+, Triceps: 2+, Brachioradialis: 2+, Patella: 2+, Achilles: 2 + Mental Status Examination: awake, alert, oriented to person (Patient is mostly mute, follows only simple commands), oriented to place (not), oriented to time (not), follows commands appropriately (only simple commands such as counting two fingers), opens eyes to voice, makes eye contact, follows simple commands, demented, impaired cognition Cranial nerve examination: PERRL, EOMI (Unable to assess. Reduced eye pursue movements. eye movements however, are full. difficult upward gaze), visual parker intact (Unable to assess accurately), corneal reflexes brisk symmetrically, sensory to face intact, mastication intact, no facial asymmetry is present, no dysarthria, hearing is intact symmetrically, soft palate elevates bilaterally upon phonation (Unable to assess, patient not cooperative), gag reflex intact, tongue protrudes midline Results - Laboratory Findings CBC and BMP: 04/28/19 00:48 04/28/19 00:48 Abnormal lab findings: Abnormal lab results RBC 4.15 M/mcL (4.19-5.50) L 04/28/19 00:48 Plt Count 67 K/mcL (140-400) L 04/28/19 00:48 MPV 14.2 fL (9.4-12.4) H 04/27/19 16:47 Immature Plt Fraction 29.3 % (1.1-6.1) H 04/28/19 00:48 PT 16.9 Seconds (9.4-12.1) H 04/27/19 16:47 Sodium 146 mEq/L (136-145) H 04/27/19 16:47 Potassium 3.2 mEq/L (3.5-5.1) L 04/28/19 00:48 Carbon Dioxide 31 mEq/L (23-29) H 04/27/19 16:47 Creatinine 0.52 mg/dL (0.70-1.30) L 04/28/19 00:48 Glucose 59 mg/dL (70-105) L 04/28/19 00:48 POC Glucose 230 mg/dL (70-99) H 04/27/19 16:52 Calculated Osmolality 301 (280-300) H 04/27/19 16:47 Calcium 8.2 mg/dL (8.6-10.3) L 04/28/19 00:48 Serum Total Protein 5.6 g/dL (6.4-8.9) L 04/27/19 16:47 Albumin 3.4 g/dL (3.5-5.7) L 04/27/19 16:47 Globulin 2.2 g/dL (2.4-3.5) L 04/27/19 16:47 Ur Specific [place] > 1.030 (1.010-1.025) H 04/27/19 21:22 Urine Ketones Trace mg/dL (Negative) H 04/27/19 21:22 Valproic Acid 106 mcg/mL (50-100) H* 04/28/19 00:48 - Diagnostic Findings Additional findings: MRI OF THE BRAIN WITHOUT CONTRAST 04/28/2019 3:47 pm TECHNIQUE: Multiplanar multisequence MRI of the brain was performed without the administration of intravenous contrast. COMPARISON: None. HISTORY: ORDERING SYSTEM PROVIDED HISTORY: stroke eval FINDINGS: The examination is motion degraded. INTRACRANIAL STRUCTURES/VENTRICLES: There is no acute infarct. The lateral, third, and fourth ventricles are enlarged. There is diffuse brain atrophy. Ventriculomegaly may reflect brain parenchymal volume loss, or less likely hydrocephalus. ORBITS: The visualized portion of the orbits demonstrate no acute abnormality. SINUSES: Left maxillary sinus mucosal thickening and fluid is nonspecific. Sphenoid sinus mucosal thickening. BONES/SOFT TISSUES: The bone marrow signal intensity appears normal. The soft tissues demonstrate no acute abnormality. MR/MR head/brain wo con IMPRESSION: No acute intracranial abnormality on motion degraded exam. Ventricular enlargement could be due to brain atrophy, less likely hydrocephalus. D/ / 04/28/2019 16:19:59 Puneet Velázquez MD / jeanne Interpreting Provider: Puneet Velázquez MD CTA OF THE HEAD WITHOUT AND WITH CONTRAST; CTA OF THE NECK 04/27/2019 7:58 pm: TECHNIQUE: CTA of the head/brain was performed without and with the administration of intravenous contrast. Multiplanar reformatted images are provided for review. MIP images are provided for review. Dose modulation, iterative reconstruction, and/or weight based adjustment of the mA/kV was utilized to reduce the radiation dose to as low as reasonably achievable.; CTA of the neck was performed with the administration of intravenous contrast. Multiplanar reformatted images are provided for review. MIP images are provided for review. Stenosis of the internal carotid arteries measured using NASCET criteria. Dose modulation, iterative reconstruction, and/or weight based adjustment of the mA/kV was utilized to reduce the radiation dose to as low as reasonably achievable. COMPARISON: None. HISTORY: ORDERING SYSTEM PROVIDED HISTORY: ams Initial encounter acute illness. Right-sided weakness today. FINDINGS: CTA NECK: AORTIC ARCH/ARCH VESSELS: There is a normal branch pattern of the aortic arch. No significant stenosis is seen of the innominate artery or subclavian arteries. CAROTID ARTERIES: There is minimal atherosclerotic plaque at the carotid bifurcations and bulbs without significant stenosis. Common, internal, and external carotids are otherwise unremarkable. There is no dissection. VERTEBRAL ARTERIES: There is mild stenosis at the origins of the vertebral arteries. The cervical vertebral arteries are otherwise unremarkable. There is no dissection. SOFT TISSUES: The lung apices are clear. No cervical or superior mediastinal lymphadenopathy. The visualized portion of the larynx and pharynx appear unremarkable. The parotid, submandibular and thyroid glands demonstrate no acute abnormality. There are subcentimeter right thyroid nodules, for which no further follow-up is warranted given patient's age and nodule size less than 1.5 cm. BONES: There is no acute fracture or suspect osseous lesion. There are mild degenerative changes in the cervical spine greatest at C3-4 and C6-7. CTA HEAD: ANTERIOR CIRCULATION: The internal carotid arteries are normal in course and caliber without focal stenosis. The anterior cerebral and middle cerebral arteries demonstrate no focal stenosis. The right anterior cerebral artery A1 segment is hypoplastic. POSTERIOR CIRCULATION: The posterior cerebral arteries demonstrate no focal stenosis. The vertebral and basilar arteries appear unremarkable. The right posterior cerebral artery is probably supplied by the right posterior communicating artery. BRAIN: No aneurysm or vascular malformation. No abnormal intracranial enhancement. CT/CT angio neck IMPRESSION: No acute arterial abnormality or hemodynamically significant arterial stenosis in the head or neck. D/ / Saroj Iniguez / Saroj Iniguez Interpreting Provider: Saroj Iniguez OF THE HEAD WITHOUT CONTRAST 04/28/2019 12:11 pm TECHNIQUE: CT of the head was performed without the administration of intravenous contrast. Dose modulation, iterative reconstruction, and/or weight based adjustment of the mA/kV was utilized to reduce the radiation dose to as low as reasonably achievable. COMPARISON: 04/27/2019 HISTORY: ORDERING SYSTEM PROVIDED HISTORY: AMS FINDINGS: BRAIN/VENTRICLES: Ventricles are midline in position and enlarged in size, similar to prior. There prominence of the sulci, compatible with atrophy. Subtle periventricular hypodensity is seen. No obvious hemorrhage. No mass effect. No midline shift. There is subtle periventricular hypodensity seen. Appearance of the brain is similar compared to prior ORBITS: The visualized portion of the orbits demonstrate no acute abnormality. SINUSES: There is a new air-fluid level seen in the left maxillary sinus with increasing mucosal thickening. No air-fluid level also seen in left sphenoid cellule. There is increased mucosal thickening in the ethmoids. SOFT TISSUES/SKULL: No acute abnormality of the visualized skull or soft tissues.. Cervical spine degenerative change is seen CT/CT head/brain wo con IMPRESSION: No hemorrhage or mass.. Ventricles are enlarged., similar to prior Increased paranasal sinus disease D/ / Car Andrade MD / Car Andrade MD Interpreting Provider: Car Andrade MD Consult Discharge Plan - Plan [facility]errals: [facility] [Primary Care Provider] -
[2019-04-29] MEDS: Ipratropium/Albuterol Neb 3 ML IH SCH ×4 (04:00→21:20)
[2019-04-29 07:14] LABS: Mean Corpuscular Volume 93.9 fL (83.0-100.0)
[2019-04-29 07:16] LABS: Basophils % 0.2 %; Eosinophils % 0.5 %; Hematocrit 36.8 % (37.5-50.1); Hemoglobin 12.4 g/dL (12.9-16.9); Immature Granulocytes % 0.6 % (0-4); Immature Platelets 22.8 % (1.1-6.1); Lymphocytes # 0.6 K/mcL (0.6-4.6); Lymphocytes % 7.3 %; Mean Corpuscular HGB Conc 33.7 g/dL (31.6-35.5); Mean Corpuscular Hemoglobin 31.6 pg (28.0-33.3); Monocytes # 0.8 K/mcL (0.0-1.3); Monocytes % 9.9 %; Neutrophils # 6.6 K/mcL (1.6-8.9); Red Blood Count 3.92 M/mcL (4.19-5.50); Segmented Neutrophils % 81.5 %; White Blood Count 8.1 K/mcL (4.3-11.1)
[2019-04-29 07:26] LABS: Platelet Count 73 K/mcL (140-400)
[2019-04-29] MEDS: Thiamine (B-1) 100 MG TABLET PO SCH (07:48)
[2019-04-29] MEDS: Aspirin 81 MG TAB.CHEW PO SCH (07:49)
[2019-04-29] MEDS: Multivit/Ca/Min/Fe/FA 1 TAB TABLET PO SCH (07:49)
[2019-04-29] MEDS: Insulin LISPRO 300 UNITS/3 ML VIAL SQ SCH ×4 (07:50→20:38)
[2019-04-29] MEDS: Loratadine 10 MG TABLET PO SCH (07:50)
[2019-04-29 07:57] LABS: BUN/Creatinine Ratio 28 (6-26); Blood Urea Nitrogen 16 mg/dL (8-23); Carbon Dioxide 24 mEq/L (23-29); Chloride 106 mEq/L (98-107); Glucose 197 mg/dL (70-105); Osmolality,Calculated 291 (280-300); Potassium 3.8 mEq/L (3.5-5.1); Sodium 137 mEq/L (136-145); eGFR For African Americans > 60 (> 60); eGFR For Non-African Americans > 60 (> 60)
--- NOTE | 2019-04-29 08:06 | Internal Med Progress Note ---
Hospitalist Progress Note - Encounter Date of Encounter: 04/29/19 Time of Encounter: 08:04 - Subjective Interval History: Patient was seen and examined at bedside - Exam Vitals: Temp Pulse Resp BP Pulse Ox 100.0 F H 81 16 117/72 94 04/29/19 07:24 04/29/19 07:24 04/29/19 07:24 04/29/19 07:24 04/29/19 07:24 Exam: General: Well-developed white male, somewhat unkempt lying in bed in no acute distress. Responsive to verbal stimuli. Skin: Warm and dry. HEENT: Dry mucous membranes. No conjunctivae pallor. Neck: No lymphadenopathy. No JVD. No carotid bruits. No palpable thyroid. Chest: Normal thoracic expansion. Normal breath sounds. Clear to auscultation. Heart: Normal S1 & S2; rhythmic. No rubs or murmurs. Abdomen: Non-distended, soft and non-tender to palpation. No peritoneal reaction. Extremities: 3/5 right arm strength. 4/5 left arm and bilateral lower extremity strength. Neurological: Alert/ oriented to person but not place and time. Psych: Affect flat. - Assessment and Plan (1) Acute encephalopathy Current Visit: Yes Status: Acute Assessment and Plan: According to nursing staff at [facility] patient is normally very talkative and oriented. Does not appear to be any signs of infection or intoxication. He did have a slightly elevated Depakote level which we will hold for now and recheck. Unsure if he has history of seizures-CT of head No acute intracranial abnormality. Chronic involutional changes and minor chronic small vessel ischemic disease. Slight discordance of degree of ventriculomegaly can sometimes be seen in the setting of normal pressure hydrocephalus. Clinical correlation recommended. CTA of head and neck No acute arterial abnormality or hemodynamically significant arterial stenosis in the head or neck. MRI pending consult neurology as needed Has hx of dementia Hold sedating medications 04/29 CTA of head and neck No acute arterial abnormality or hemodynamically significant arterial stenosis in the head or neck. CT of brain wo contrast No hemorrhage or mass.. Ventricles are enlarged., similar to prior Increased paranasal sinus disease MRI of Brain No acute intracranial abnormality on motion degraded exam. Ventricular enlargement could be due to brain atrophy, less likely hydrocephalus. He did have a fever overnight- CXR with no acute process urinalysis -nothing acute - he does have a cough and coarse rhonchi - we will obtain a resp panel - blood/sputum culture Seen by Neurology appreciate recommendations (2) Hyperlipemia Current Visit: No Status: Chronic Assessment and Plan: Continue statin (3) COPD (chronic obstructive pulmonary disease) Current Visit: Yes Status: Acute Assessment and Plan: Does not appear to be in exacerbation at this time continue with nebulizers as needed (4) Thrombocytopenia Current Visit: Yes Status: Acute Assessment and Plan: Appears to be new onset no bleeding noted patient does have a past history of drug and alcohol use may be stemming from this will continue to monitor closely (5) DVT prophylaxis Current Visit: Yes Status: Acute Assessment and Plan: SCDs due to thrombocytopenia - Time Spent with Patient Total time spent is greater than 50% in coordination of care (as documented) at patient's floor/unit and/or counseling patient: Internal Medicine: Result - Labs CBC & Chem 7: 04/29/19 06:30 04/29/19 06:30 Labs: Short CBC 04/29/19 Range/Units 06:30 WBC 8.1 (4.3-11.1) K/mcL Hgb 12.4 L (12.9-16.9) g/dL Hct 36.8 L (37.5-50.1) % Plt Count 73 L (140-400) K/mcL Neutrophils # 6.6 (1.6-8.9) K/mcL BMP 04/29/19 06:30 Sodium 137 Potassium 3.8 Chloride 106 Carbon Dioxide 24 BUN 16 Creatinine 0.58 L Glucose 197 H Calcium 8.0 L - ABG Interpretation ABG results: PT/INR, D-dimer PT 16.9 Seconds (9.4-12.1) H 04/27/19 16:47 - Impressions Impressions Brain MRI 04/27/19 22:37 IMPRESSION: No acute intracranial abnormality on motion degraded exam. Ventricular enlargement could be due to brain atrophy, less likely hydrocephalus. D/ / 04/28/2019 16:19:59 Puneet Velázquez MD / jeanne Interpreting Provider: Puneet Velázquez MD Head CT 04/28/19 11:04 IMPRESSION: No hemorrhage or mass.. Ventricles are enlarged., similar to prior Increased paranasal sinus disease D/ / Car Andrade MD / Car Andrade MD Interpreting Provider: Car Andrade MD Consult Discharge Plan - Plan [facility]errals: [facility] [Primary Care Provider] - (2) Hyperlipemia Qualifiers: Hyperlipidemia type: unspecified Qualified Code(s): E78.5 - Hyperlipidemia, unspecified (3) COPD (chronic obstructive pulmonary disease) Qualifiers: COPD type: unspecified COPD Qualified Code(s): J44.9 - Chronic obstructive pulmonary disease, unspecified
[2019-04-29] MEDS: cefTRIAXone 1,000 MG in Water for inj. (sterile) 10 ML IVP SCH (09:40)
[2019-04-29] MEDS: Azithromycin 500 MG in D5% in Water 250 ML IVPB SCH (09:45)
[2019-04-29 10:19] LABS: Valproate 45 mcg/mL (50-100)
[2019-04-29] MEDS: Insulin DETEMIR 100 UNIT/ML X5UNITS SQ SCH ×2 (10:45→11:05)
[2019-04-29] MEDS ORDERED: Ipratropium/Albuterol Neb 3 ML IH SCH (11:00)
--- NOTE | 2019-04-29 12:25 | Neurology Progress Note ---
Date of Encounter: 04/29/19 Time of Encounter: 12:23 Assessment and Plan (1) Acute encephalopathy Current Visit: Yes Status: Acute This appears to be slightly improving and he is able to follow commands better and likely symptoms are related to medical encephalopathy on top of Parkinsonism. From neurology perspective there is not much to add at this time. He may benefit from neurology follow up in the future regarding his Parkinsonian features. (2) Right arm weakness Current Visit: Yes Status: Acute Resolved Subjective Principal diagnosis: mental status changes Interval history: Patient seen and examined today at the bedtime.Patient appears more alert and not in any acute distress. However, he is still not able to answer questions and when asked what the year is he suddenly laughed. I did not see any right sided weakness today although he still has slight rest tremors. No weakness in his legs. No nuchal rigidity. Denies any headaches Objective - Constitutional Vitals: Temp Pulse Resp BP Pulse Ox 98.7 F 77 16 110/73 96 04/29/19 11:35 04/29/19 11:35 04/29/19 11:35 04/29/19 11:35 04/29/19 11:35 - Neurological Exam Sensorimotor examination: Present: other (Grossly intact) Motor Examination: Present: grossly full strength in all extremities (slight right arm weakness. Resting tremors to the left arm. significant diffuse cogwheeling rigidity) Motor examination - right side: 5/5: deltoids, biceps, triceps, wrist flexion, wrist extension, pipe fitter, hip flexors, tibialis Anterior, quadriceps, toe extension (EHL), plantarflexion Motor examination - left side: 5/5: deltoids, biceps, triceps, wrist flexion, wrist extension, hip flexors, pipe fitter, quadriceps, tibialis Anterior, toe extension (EHL), plantarflexion Sensation intact: Present: other (Grossly intact) Posture: Present: other (None) Reflex and gait examination: other (Gait not tested) Reflexes: Biceps: 2+, Triceps: 2+, Brachioradialis: 2+, Patella: 2+, Achilles: 2+ Mental Status Examination: Present: awake, alert, oriented to person (Patient is mostly mute, follows only simple commands), oriented to place (not), oriented to time (not), follows commands appropriately (Follows commands better than yesterday), opens eyes to voice, makes eye contact, follows simple commands, demented, impaired cognition Cranial nerve examination: Present: PERRL, EOMI (Full eye movmeents seen), vi sual parker intact (Unable to assess accurately), corneal reflexes brisk symmetrically, sensory to face intact, mastication intact, no facial asymmetry is present, no dysarthria, hearing is intact symmetrically, gag reflex intact, tongue protrudes midline Results - Laboratory Findings CBC and BMP: 04/29/19 06:30 04/29/19 06:30 Abnormal lab findings: Abnormal lab results RBC 3.92 M/mcL (4.19-5.50) L 04/29/19 06:30 Hgb 12.4 g/dL (12.9-16.9) L 04/29/19 06:30 Hct 36.8 % (37.5-50.1) L 04/29/19 06:30 Plt Count 73 K/mcL (140-400) L 04/29/19 06:30 MPV 14.2 fL (9.4-12.4) H 04/27/19 16:47 Immature Plt Fraction 22.8 % (1.1-6.1) H 04/29/19 06:30 PT 16.9 Seconds (9.4-12.1) H 04/27/19 16:47 Sodium 146 mEq/L (136-145) H 04/27/19 16:47 Potassium 3.2 mEq/L (3.5-5.1) L 04/28/19 00:48 Carbon Dioxide 31 mEq/L (23-29) H 04/27/19 16:47 Creatinine 0.58 mg/dL (0.70-1.30) L 04/29/19 06:30 BUN/Creatinine Ratio 28 (6-26) H 04/29/19 06:30 Glucose 197 mg/dL (70-105) H 04/29/19 06:30 POC Glucose 112 mg/dL (70-99) H 04/28/19 19:18 Calculated Osmolality 301 (280-300) H 04/27/19 16:47 Calcium 8.0 mg/dL (8.6-10.3) L 04/29/19 06:30 Serum Total Protein 5.6 g/dL (6.4-8.9) L 04/27/19 16:47 Albumin 3.4 g/dL (3.5-5.7) L 04/27/19 16:47 Globulin 2.2 g/dL (2.4-3.5) L 04/27/19 16:47 Ur Specific [place] > 1.030 (1.010-1.025) H 04/27/19 21:22 Urine Ketones Trace mg/dL (Negative) H 04/27/19 21:22 Valproic Acid 45 mcg/mL (50-100) L 04/29/19 06:30 Consult Discharge Plan - Plan [facility]errals: [facility] [Primary Care Provider] -
[2019-04-29] MEDS ORDERED: Divalproex (24 HR) 500 MG TABLET PO SCH (14:45)
[2019-04-29 15:10] LABS: Adenovirus Not Detected (Not Detect); Bordetella Pertussis Not Detected (Not Detect); Chlamydophila pneumoniae Not Detected (Not Detect); Coronavirus 229E Not Detected (Not Detect); Coronavirus HKU1 Not Detected (Not Detect); Coronavirus NL63 Not Detected (Not Detect); Coronavirus OC43 Not Detected (Not Detect); Human Metapneumovirus Not Detected (Not Detect); Human Rhinovirus/Enterovirus DETECTED (Not Detect); Influenza A Subtype 2009 H1 Not Detected (Not Detect); Influenza A Untypeable Not Detected (Not Detect); Influenza B Not Detected (Not Detect); Mycoplasma pneumoniae Not Detected (Not Detect); Parainfluenza Virus 1 Not Detected (Not Detect); Parainfluenza Virus 2 Not Detected (Not Detect); Parainfluenza Virus 3 Not Detected (Not Detect); Parainfluenza Virus 4 Not Detected (Not Detect); Respiratory Syncytial Virus Not Detected (Not Detect)
[2019-04-29] MEDS: Nicotine 14 MG PATCH.TD24 TD SCH (17:01)
[2019-04-29] MEDS: Melatonin 3 MG TABLET PO SCH (20:37)
[2019-04-30] MEDS: Ipratropium/Albuterol Neb 3 ML IH SCH ×3 (04:42→15:27)
[2019-04-30 04:44] LABS: Basophils % 0.3 %; Immature Granulocytes % 0.3 % (0-4); Red Blood Count 4.02 M/mcL (4.19-5.50)
[2019-04-30 04:46] LABS: Eosinophils # 0.2 K/mcL (0.0-0.6); Eosinophils % 2.5 %; Hematocrit 38.3 % (37.5-50.1); Hemoglobin 13.1 g/dL (12.9-16.9); Immature Platelets 26.4 % (1.1-6.1); Lymphocytes # 1.5 K/mcL (0.6-4.6); Lymphocytes % 21.6 %; Mean Corpuscular HGB Conc 34.2 g/dL (31.6-35.5); Mean Corpuscular Hemoglobin 32.6 pg (28.0-33.3); Mean Corpuscular Volume 95.3 fL (83.0-100.0); Monocytes # 0.8 K/mcL (0.0-1.3); Neutrophils # 4.4 K/mcL (1.6-8.9); Red Cell Distribution Width 13.8 % (11.5-14.5); Segmented Neutrophils % 64.3 %; White Blood Count 6.9 K/mcL (4.3-11.1)
[2019-04-30 04:51] LABS: Platelet Count 75 K/mcL (140-400)
[2019-04-30 04:52] LABS: Platelet Estimate Marked Decrease (Normal)
[2019-04-30 04:59] LABS: BUN/Creatinine Ratio 19 (6-26); Blood Urea Nitrogen 11 mg/dL (8-23); Calcium 8.2 mg/dL (8.6-10.3); Carbon Dioxide 24 mEq/L (23-29); Chloride 104 mEq/L (98-107); Glucose 66 mg/dL (70-105); Osmolality,Calculated 284 (280-300); Potassium 3.4 mEq/L (3.5-5.1); Sodium 138 mEq/L (136-145); eGFR For African Americans > 60 (> 60); eGFR For Non-African Americans > 60 (> 60)
[2019-04-30] MEDS: Insulin LISPRO 300 UNITS/3 ML VIAL SQ SCH ×2 (07:26→12:17)
[2019-04-30] MEDS: Multivit/Ca/Min/Fe/FA 1 TAB TABLET PO SCH (08:21)
[2019-04-30] MEDS: Aspirin 81 MG TAB.CHEW PO SCH (08:21)
[2019-04-30] MEDS: Thiamine (B-1) 100 MG TABLET PO SCH (08:21)
[2019-04-30] MEDS: Nicotine 14 MG PATCH.TD24 TD SCH (08:21)
[2019-04-30] MEDS: Loratadine 10 MG TABLET PO SCH (08:21)
[2019-04-30] MEDS: cefTRIAXone 1,000 MG in Water for inj. (sterile) 10 ML IVP SCH (08:24)
[2019-04-30] MEDS: Azithromycin 500 MG in D5% in Water 250 ML IVPB SCH (08:27)
[2019-04-30] MEDS: Insulin DETEMIR 100 UNIT/ML X5UNITS SQ SCH (08:30)
[2019-04-30] MEDS ORDERED: Divalproex (24 HR) 250 MG TABLET PO SCH (09:00)
[2019-04-30 12:00] VITALS: BP 106/62
--- NOTE | 2019-04-30 13:28 | Discharge Summary ---
- NOTES TO OUTPATIENT PROVIDER Notes to Outpatient Provider: Had some confusion and R side upper extremity weakness. Was seen abt neurology - cont depakote suspect Parkinson disease - will need to follow up with neurology. - URI - resp failure - Entero/Rhino-Hx COPD will place on Azithromycin Orders not resulted at time of discharge: Pending orders 04/30/19 10:04 Vitamin B1 (Thiamine) Whole Bl Routine Date of Encounter: 04/30/19 Time of Encounter: 13:16 - Discharge Diagnosis (1) Acute encephalopathy Priority: Primary Status: Acute (2) Hyperlipemia Priority: Secondary Status: Chronic Qualifiers: Hyperlipidemia type: unspecified Qualified Code(s): E78.5 - Hyperlipidemia, unspecified (3) COPD (chronic obstructive pulmonary disease) Priority: Secondary Status: Acute Qualifiers: COPD type: unspecified COPD Qualified Code(s): J44.9 - Chronic obstructive pulmonary disease, unspecified (4) Thrombocytopenia Priority: Secondary Status: Acute Hospital course: Mr. Duvall is a 68 year old male past medical history dementia COPD diabetes hyperlipidemia psychiatric disorders as well as chronic right-sided weakness who resides in [facility]. He was brought to the ER after experiencing altered mental state and worsening right-sided weakness according to caregivers. Normally patient is very talkative alert and oriented however he has been less conversational he was found to have low glucose was given dextrose stroke alert was called CT studies were unremarkable MRI with nothing acute-lab work did show some thrombocytopenia no white count chest x-ray with nothing acute hepatic panel within normal limits urinalysis - respiratory panel -does show Entero/Rhino -started on azithromycin-His mental state improved - and his resp state is improved . He will follow up with neurology as well as PCP monitor CBC - VS stable Ready for discharge - Time Spent with Patient Total time spent providing and/or coordinating discharge services: - Discharge Medications Prescriptions: New Azithromycin 250 mg PO DAILY 4 Days #4 tablet Continued Thiamine (B-1) [Vitamin B-1] 100 mg PO DAILY Lurasidone HCl [Latuda] 80 mg PO HS Divalproex (24 HR) [Depakote ER (24 HR)] 750 mg PO QAM Divalproex (24 HR) [Depakote ER (24 HR)] 1,000 mg PO HS Ipratropium/Albuterol Neb [Duoneb] 3 ml IH Q6HR Docusate [Colace] 100 mg PO BID Chlorpheniramine/Dextromethorp [Coricidin Hbp Cough & Cold Tab] 1 each PO Q4H PRN PRN Reason: Cough Insulin Glargine,Hum.rec.anlog [Basaglar Kwikpen U-100] 18 unit SQ DAILY Cetirizine HCl 10 mg PO DAILY Atorvastatin Calcium [Lipitor] 20 mg PO DAILY Acetaminophen [Tylenol] 975 mg PO Q12H PRN PRN Reason: Pain glipiZIDE [Glipizide] 10 mg PO BID GuaiFENesin Liq [Robitussin Liq] 200 mg PO TID PRN PRN Reason: cough Insulin Regular, Human [Novolin R] 0 unit SQ QID Lactulose 15 ml PO BID Melatonin 3 mg PO HS Sertraline [Zoloft] 100 mg PO DAILY Tizanidine HCl [Zanaflex] 2 mg PO Q12H PRN PRN Reason: Spasms Tramadol HCl [Ultram] 50 mg PO BID PRN PRN Reason: Pain Multivit-Min/Folic/Vit K/Lycop [Men's Multivitamin Tablet] 1 each PO DAILY Discontinued LORazepam [Ativan] 0.5 mg PO DAILY Ibuprofen [Ibu] 800 mg PO DAILY No Action Ibuprofen [Motrin] 600 mg PO BID PRN PRN Reason: Mild Pain Home Medications: Ibuprofen [Motrin] 600 mg PO BID PRN 12/15/15 [History] Lurasidone HCl [Latuda] 80 mg PO HS 12/15/15 [History] Thiamine (B-1) [Vitamin B-1] 100 mg PO DAILY 12/15/15 [History] Acetaminophen [Tylenol] 975 mg PO Q12H PRN 04/27/19 [History] Atorvastatin Calcium [Lipitor] 20 mg PO DAILY 04/27/19 [History] Cetirizine HCl 10 mg PO DAILY 04/27/19 [History] Chlorpheniramine/Dextromethorp [Coricidin Hbp Cough & Cold Tab] 1 each PO Q4H PRN 04/27/19 [History] Divalproex (24 HR) [Depakote ER (24 HR)] 1,000 mg PO HS 04/27/19 [History] Divalproex (24 HR) [Depakote ER (24 HR)] 750 mg PO QAM 04/27/19 [History] Docusate [Colace] 100 mg PO BID 04/27/19 [History] GuaiFENesin Liq [Robitussin Liq] 200 mg PO TID PRN 04/27/19 [History] Insulin Glargine,Hum.rec.anlog [Basaglar Kwikpen U-100] 18 unit SQ DAILY 04/27/19 [History] Insulin Regular, Human [Novolin R] 0 unit SQ QID 04/27/19 [History] Ipratropium/Albuterol Neb [Duoneb] 3 ml IH Q6HR 04/27/19 [History] Lactulose 15 ml PO BID 04/27/19 [History] Melatonin 3 mg PO HS 04/27/19 [History] Sertraline [Zoloft] 100 mg PO DAILY 04/27/19 [History] Tizanidine HCl [Zanaflex] 2 mg PO Q12H PRN 04/27/19 [History] Tramadol HCl [Ultram] 50 mg PO BID PRN 04/27/19 [History] glipiZIDE [Glipizide] 10 mg PO BID 04/27/19 [History] Multivit-Min/Folic/Vit K/Lycop [Men's Multivitamin Tablet] 1 each PO DAILY 04/29/19 [History] Azithromycin 250 mg PO DAILY 4 Days #4 tablet 04/30/19 [Rx] Allergies/Adverse Reactions: Allergy/AdvReac Type Severity Reaction Status Date / Time No Known Allergies Allergy Verified 06/10/16 15:46 Date of admission: 04/27/19 22:50 [facility] care physician: [facility] Consults: 04/28/19 16:12 Consult to Neurology [CONS] Routine Consulting Provider: Neurology [facility] Reason for Consult: r sided weakness Time Notified: 16:12 Call Completed: Yes Discharging clinician: Jeanne Guerrero Anticipated date of discharge: 04/30/19 - Constitutional Vitals: Temp Pulse Resp BP Pulse Ox 97.7 F 70 15 106/62 95 04/30/19 11:59 04/30/19 11:59 04/30/19 11:59 04/30/19 11:59 04/30/19 11:59 Exam: Skin: Free of rash and discoloration. Eyes: Sclera is white. There is no discharge from eyes. ENMT: Oral/pharyngeal mucosa is normal in appearance. There is no discharge from nose or ears. Respiratory: Normal breath sounds with no crackles and wheezes bilaterally. CV: Heart is regular with no gallop or murmur. GI: Abdomen is flat and soft with no palpable mass or visceromegaly. : There is no tenderness in patient's flanks bilaterally. Neuro exam: He has good strength in upper and lower extremities. He has normal eye movements. Psychiatric: He has normal affect. His thought process is appropriate to the situation. - Patient Status Disposition: Transfer SNF Condition: Fair Functional capacity at discharge: independent ambulation Overall status at discharge: patient is back to baseline - Discharge Instructions Follow Up With: CHEN,PCP [Primary Care Provider] - 05/08/19 2:00 pm - Diet and Activity Activity: increase activity as tolerated Diet: advance to your usual diet
--- NOTE | 2019-04-30 14:03 | Physician Discharge Referral ---
ExtendedCare Referral Info Transfer To: [facility] Provider in Charge: Jeanne Guerrero Provider in Charge after Transfer: PCP Institutional Level of Care: Skilled - Diagnosis (1) Acute encephalopathy Priority: Primary Status: Acute (2) Hyperlipemia Priority: Secondary Status: Chronic (3) COPD (chronic obstructive pulmonary disease) Priority: Secondary Status: Acute (4) Thrombocytopenia Priority: Secondary Status: Acute Prognosis: Good - Transfer Medications Prescriptions: Azithromycin 250 mg PO DAILY 4 Days #4 tablet Home Medications: Ibuprofen [Motrin] 600 mg PO BID PRN 12/15/15 [History] Lurasidone HCl [Latuda] 80 mg PO HS 12/15/15 [History] Thiamine (B-1) [Vitamin B-1] 100 mg PO DAILY 12/15/15 [History] Acetaminophen [Tylenol] 975 mg PO Q12H PRN 04/27/19 [History] Atorvastatin Calcium [Lipitor] 20 mg PO DAILY 04/27/19 [History] Cetirizine HCl 10 mg PO DAILY 04/27/19 [History] Chlorpheniramine/Dextromethorp [Coricidin Hbp Cough & Cold Tab] 1 each PO Q4H PRN 04/27/19 [History] Divalproex (24 HR) [Depakote ER (24 HR)] 1,000 mg PO HS 04/27/19 [History] Divalproex (24 HR) [Depakote ER (24 HR)] 750 mg PO QA 04/27/19 [History] Docusate [Colace] 100 mg PO BID 04/27/19 [History] GuaiFENesin Liq [Robitussin Liq] 200 mg PO TID PRN 04/27/19 [History] Insulin Glargine,Hum.rec.anlog [Basaglar Kwikpen U-100] 18 unit SQ DAILY 04/27/19 [History] Insulin Regular, Human [Novolin R] 0 unit SQ QID 04/27/19 [History] Ipratropium/Albuterol Neb [Duoneb] 3 ml IH Q6HR 04/27/19 [History] Lactulose 15 ml PO BID 04/27/19 [History] Melatonin 3 mg PO HS 04/27/19 [History] Sertraline [Zoloft] 100 mg PO DAILY 04/27/19 [History] Tizanidine HCl [Zanaflex] 2 mg PO Q12H PRN 04/27/19 [History] Tramadol HCl [Ultram] 50 mg PO BID PRN 04/27/19 [History] glipiZIDE [Glipizide] 10 mg PO BID 04/27/19 [History] Multivit-Min/Folic/Vit K/Lycop [Men's Multivitamin Tablet] 1 each PO DAILY 04/29/19 [History] Azithromycin 250 mg PO DAILY 4 Days #4 tablet 04/30/19 [Rx] Allergies/Adverse Reactions: Allergy/AdvReac Type Severity Reaction Status Date / Time No Known Allergies Allergy Verified 06/10/16 15:46 - Respiratory Orders Smoking Cessation: Smoking cessation has been advised. For more information, call the [facility] Tobacco Quit Line at 4-143-PQZV-NOW. - Lab Orders Lab Orders: CBC (CBC) - Advance Directives Living Will: Yes Power of Breast Worker for Health Care: Yes Code Status: Full Code - Mobility Orders Ambulate - Rehabiliation Orders Rehab Potential: Good - Diet Orders No Concentrated Sweets CERTIFICATION: I certify that the transfer of the above named patient to an Extended Care Facility is necessary for the continuing treatment of the diagnosis listed. The above information is true and accurate reflection of patient's current condition. Confidential - Redisclosure prohibited without a patient's written consent.
--- NOTE | 2019-05-01 13:22 | Electrocardiograph Report ---
[place] [id number] Test Date: 2019-04-27 Pat Name: Christian Duvall Department: [id number] Room: 3B13 Gender: M Can Piler: : [id number] Requested By: Hank Burkett Order Number: [id number] Reading MD: Ankit Roth Measurements Intervals [place] Rate: 98 P: 81 DC: 144 QRS: -6 QRSD: 88 T: 79 QT: 350 QTc: 447 Interpretive Statements Sinus rhythm Borderline low voltage, extremity leads BASELINE ARTIFACT Electronically Signed On 05-01-2019 13:21:19 EDT by Ankit Roth
== END 2019-04-30 16:34 ==
LOC: EMEROOARM 16:35 → 3BNU 16:35
PROVIDERS: ADMIT Internal Medicine Nephrology; ATTEND Internal Medicine Nephrology

== ENCOUNTER 2020-03-21 09:00 | Inpatient (IN) ==
[2020-03-21 09:31] LABS: Monocytes % 6.4 %
[2020-03-21 09:32] LABS: Basophils % 0.4 %; Eosinophils % 0.7 %; Hematocrit 42.9 % (37.5-50.1); Immature Granulocytes % 0.2 % (0-4); Immature Platelets 24.6 % (1.1-6.1); Lymphocytes # 1.1 K/mcL (0.6-4.6); Lymphocytes % 19.2 %; Mean Corpuscular HGB Conc 32.6 g/dL (31.6-35.5); Mean Corpuscular Hemoglobin 30.8 pg (28.0-33.3); Mean Corpuscular Volume 94.5 fL (83.0-100.0); Monocytes # 0.4 K/mcL (0.0-1.3); Neutrophils # 4.1 K/mcL (1.6-8.9); Red Blood Count 4.54 M/mcL (4.19-5.50); Red Cell Distribution Width 13.9 % (11.5-14.5); Segmented Neutrophils % 73.1 %; White Blood Count 5.6 K/mcL (4.3-11.1)
[2020-03-21 09:33] LABS: Platelet Count 94 K/mcL (140-400)
[2020-03-21 09:38] LABS: INR 1.3
[2020-03-21 09:41] LABS: Activated Partial Thrombo Time 30.9 Seconds (26.0-36.0)
[2020-03-21 09:50] LABS: BUN/Creatinine Ratio 17 (6-26); Blood Urea Nitrogen 9 mg/dL (8-23); Calcium 8.4 mg/dL (8.6-10.3); Carbon Dioxide 27 mEq/L (23-29); Chloride 102 mEq/L (98-107); Glucose 444 mg/dL (70-105); Osmolality,Calculated 302 (280-300); Sodium 137 mEq/L (136-145); eGFR For African Americans > 60 (> 60); eGFR For Non-African Americans > 60 (> 60)
[2020-03-21] MEDS ORDERED: 0.9 % Sodium Chloride 1,000 ML IV ONE (10:11)
[2020-03-21 10:29] LABS: Bilirubin,Urine Negative (Negative); Blood,Urine Negative (Negative); Clarity,Urine Clear (Clear); Color,Urine Yellow (Yellow); Glucose,Urine (UA) >=1000 mg/dL (Normal); Ketones,Urine Negative (Negative); Leukocyte Esterase,Urine Negative (Negative); Nitrite,Urine Negative (Negative); PH,Urine 6.5 pH Units (5.0-8.0); Protein,Urine Negative (Neg-Trace); Specific Gravity,Urine 1.027 (1.010-1.025); Urobilinogen,Urine Normal (Normal)
[2020-03-21] MEDS ORDERED: Naloxone 0.4 MG/ML INJ IVP PRN (11:02)
[2020-03-21] MEDS ORDERED: *HR* HYDROmorphone (PF) 1 MG/ML SYRINGE IVP ONE (11:42)
[2020-03-21] MEDS ORDERED: Acetaminophen 325 MG TABLET PO PRN (12:39)
[2020-03-21] MEDS ORDERED: Insulin LISPRO 300 UNITS/3 ML VIAL SQ SCH ×3 (16:30→21:00)
[2020-03-21] MEDS: *HR* LORazepam 0.5 MG TABLET PO SCH ×2 (17:00→22:14)
[2020-03-21] MEDS: Divalproex Sodium 125 MG CAPSULE PO SCH (21:05)
[2020-03-22] MEDS ORDERED: Thiamine (B-1) 100 MG TABLET PO SCH (09:00)
[2020-03-22] MEDS: Insulin LISPRO 300 UNITS/3 ML VIAL SQ SCH ×4 (09:00→21:22)
[2020-03-22] MEDS ORDERED: *HR* FentaNYL (PF) 100 MCG/2 ML VIAL ONE (09:50)
[2020-03-22] MEDS ORDERED: Lidocaine -MPF 2% 2 ML VIAL ONE (09:50)
[2020-03-22] MEDS ORDERED: *HR* Propofol 200 MG/20 ML VIAL IVP ONE (09:50)
[2020-03-22] MEDS ORDERED: Dexamethasone 4 MG/ML VIAL ONE (09:50)
[2020-03-22] MEDS ORDERED: Ondansetron 4 MG/2 ML VIAL ONE (09:50)
[2020-03-22] MEDS ORDERED: CeFAZolin Syr 2,000MG/20 ML 2,000 MG/20 ML SYRINGE IVPB ONE ×2 (10:56→14:07)
[2020-03-22] MEDS ORDERED: Acetaminophen IV 1,000 MG/100 ML INFUS..BTL ONE (11:07)
[2020-03-22] MEDS ORDERED: *HR* PHENYLEPHRINE 1,000 MCG/10 ML SYRINGE IVP ONE (11:25)
[2020-03-22] MEDS ORDERED: Albuterol 2.5 MG/3 ML NEBULIZER IH PRN ×2 (13:02→14:07)
[2020-03-22] MEDS: *HR* LORazepam 0.5 MG TABLET PO SCH ×4 (13:28→21:19)
[2020-03-22] MEDS: Divalproex Sodium 125 MG CAPSULE PO SCH ×2 (13:41→21:19)
[2020-03-22] MEDS ORDERED: Naloxone 0.4 MG/ML INJ IVP PRN (14:07)
[2020-03-22] MEDS ORDERED: Acetaminophen 325 MG TABLET PO PRN (14:07)
[2020-03-22] MEDS: Lactulose Oral Soln 20 GM/30 ML UDC PO SCH ×2 (14:40→21:21)
[2020-03-22] MEDS ORDERED: Lactulose Oral Soln 20 GM/30 ML UDC PO SCH (15:00)
[2020-03-22] MEDS: CeFAZolin 2 GM/120 ML BAG IVPB SCH (17:26)
[2020-03-22] MEDS ORDERED: Insulin DETEMIR 100 UNIT/ML X5UNITS SQ SCH (21:00)
[2020-03-22] MEDS ORDERED: Melatonin 3 MG TABLET PO SCH (21:00)
[2020-03-22] MEDS: Melatonin 3 MG TABLET PO SCH (21:20)
[2020-03-22] MEDS: Insulin DETEMIR 100 UNIT/ML X5UNITS SQ SCH (21:21)
[2020-03-23] MEDS: CeFAZolin 2 GM/120 ML BAG IVPB SCH (02:04)
[2020-03-23 04:48] LABS: Eosinophils % 0.3 %; Immature Granulocytes % 0.3 % (0-4)
[2020-03-23 04:50] LABS: Basophils % 0.2 %; Hematocrit 40.6 % (37.5-50.1); Hemoglobin 13.2 g/dL (12.9-16.9); Immature Platelets 25.6 % (1.1-6.1); Lymphocytes # 1.8 K/mcL (0.6-4.6); Lymphocytes % 18.4 %; Mean Corpuscular HGB Conc 32.5 g/dL (31.6-35.5); Mean Corpuscular Hemoglobin 31.1 pg (28.0-33.3); Mean Corpuscular Volume 95.8 fL (83.0-100.0); Mean Platelet Volume 14.9 fL (9.4-12.4); Monocytes % 10.2 %; Neutrophils # 6.8 K/mcL (1.6-8.9); Red Blood Count 4.24 M/mcL (4.19-5.50); Red Cell Distribution Width 14.3 % (11.5-14.5); Segmented Neutrophils % 70.6 %; White Blood Count 9.6 K/mcL (4.3-11.1)
[2020-03-23 05:05] LABS: BUN/Creatinine Ratio 18 (6-26); Blood Urea Nitrogen 10 mg/dL (8-23); Calcium 8.3 mg/dL (8.6-10.3); Carbon Dioxide 25 mEq/L (23-29); Chloride 105 mEq/L (98-107); Glucose 278 mg/dL (70-105); Magnesium 1.7 mg/dL (1.6-2.6); Osmolality,Calculated 293 (280-300); Sodium 137 mEq/L (136-145); eGFR For African Americans > 60 (> 60); eGFR For Non-African Americans > 60 (> 60)
[2020-03-23 05:24] LABS: Platelet Count 78 K/mcL (140-400)
[2020-03-23] MEDS ORDERED: *HR* LORazepam 2 MG/ML VIAL IVP ONE (05:46)
[2020-03-23] MEDS ORDERED: Multivit/Ca/Min/Fe/FA 1 TAB TABLET PO SCH (09:00)
[2020-03-23] MEDS: Insulin LISPRO 300 UNITS/3 ML VIAL SQ SCH ×5 (09:03→19:34)
[2020-03-23] MEDS: Thiamine (B-1) 100 MG TABLET PO SCH (09:04)
[2020-03-23] MEDS: Multivit/Ca/Min/Fe/FA 1 TAB TABLET PO SCH (09:04)
[2020-03-23] MEDS: Divalproex Sodium 125 MG CAPSULE PO SCH ×2 (09:04→19:33)
[2020-03-23] MEDS: Lactulose Oral Soln 20 GM/30 ML UDC PO SCH ×3 (09:05→19:33)
[2020-03-23] MEDS: Aspirin Enteric Coated 325 MG Tablet PO SCH (09:05)
[2020-03-23] MEDS: *HR* LORazepam 0.5 MG TABLET PO SCH ×3 (09:05→22:00)
[2020-03-23] MEDS: Insulin DETEMIR 100 UNIT/ML X5UNITS SQ SCH (09:11)
[2020-03-23] MEDS ORDERED: Insulin DETEMIR 100 UNIT/ML X5UNITS SQ SCH (21:00)
[2020-03-23] MEDS: Melatonin 3 MG TABLET PO SCH (22:00)
[2020-03-24] MEDS: Insulin LISPRO 300 UNITS/3 ML VIAL SQ SCH ×3 (07:42→11:56)
[2020-03-24] MEDS: Thiamine (B-1) 100 MG TABLET PO SCH (08:02)
[2020-03-24] MEDS: Aspirin Enteric Coated 325 MG Tablet PO SCH (08:02)
[2020-03-24] MEDS: Multivit/Ca/Min/Fe/FA 1 TAB TABLET PO SCH (08:02)
[2020-03-24] MEDS: Divalproex Sodium 125 MG CAPSULE PO SCH (08:02)
[2020-03-24] MEDS: Lactulose Oral Soln 20 GM/30 ML UDC PO SCH (08:02)
[2020-03-24] MEDS: *HR* LORazepam 0.5 MG TABLET PO SCH (08:02)
[2020-03-24 10:31] VITALS: BP 139/80
[2020-03-24] MEDS ORDERED: Insulin DETEMIR 100 UNIT/ML X5UNITS SQ SCH (21:00)
== END 2020-03-24 12:50 | DRG 482 ==
LOC: EMEROOARM 09:00 → 3NENU 12:51 → SUATTDRO 12:51 → 3NENU 14:25
PROVIDERS: ADMIT Internal Medicine; ATTEND Internal Medicine

== ENCOUNTER 2022-06-23 18:45 | Inpatient (IN) ==
[2022-06-23] MEDS ORDERED: 0.9 % Sodium Chloride 1,000 ML IVC ONE (18:56)
[2022-06-23] MEDS ORDERED: Piperacillin/Tazobactam 3.375 GM in 0.9 % Sodium Chloride Mini Bag 100 ML IVPB ONE (18:56)
[2022-06-23] MEDS ORDERED: Acetaminophen 650 MG RECTAL SUPP RC ONE (18:57)
[2022-06-23] MEDS ORDERED: Vancomycin 1,250 MG/262.5 ML IV.SOLN IVPB ONE (19:00)
[2022-06-23] MEDS ORDERED: Ipratropium/Albuterol Neb 3 ML IH ONE (19:02)
[2022-06-23 19:28] LABS: Basophils % 0.4 %; Eosinophils # 0.3 K/mcL (0.0-0.6); Eosinophils % 3.4 %; Hematocrit 44.4 % (37.5-50.1); Hemoglobin 14.4 g/dL (12.9-16.9); Immature Granulocytes % 0.3 % (0-4); Immature Platelets 17.7 % (1.1-6.1); Lymphocytes # 1.4 K/mcL (0.6-4.6); Lymphocytes % 17.6 %; Mean Corpuscular HGB Conc 32.4 g/dL (31.6-35.5); Mean Corpuscular Hemoglobin 30.8 pg (28.0-33.3); Mean Corpuscular Volume 95.1 fL (83.0-100.0); Monocytes # 0.6 K/mcL (0.0-1.3); Monocytes % 7.9 %; Neutrophils # 5.4 K/mcL (1.6-8.9); Platelet Count 115 K/mcL (140-400); Red Blood Count 4.67 M/mcL (4.19-5.50); Red Cell Distribution Width 14.6 % (11.5-14.5); Segmented Neutrophils % 70.4 %; White Blood Count 7.7 K/mcL (4.3-11.1)
[2022-06-23 20:07] LABS: Bilirubin,Urine Negative (Negative); Blood,Urine Negative (Negative); Clarity,Urine Clear (Clear); Color,Urine Light-Yellow (Yellow); Glucose,Urine (UA) Normal (Normal); Ketones,Urine Negative (Negative); Leukocyte Esterase,Urine Negative (Negative); Nitrite,Urine Negative (Negative); Protein,Urine Negative (Neg-Trace); Specific Gravity,Urine 1.018 (1.010-1.025); Urobilinogen,Urine Normal (Normal)
[2022-06-23 20:08] LABS: Alanine Aminotransferase 10 Units/L (7-52); Albumin 4.1 g/dL (3.5-5.7); Albumin/Globulin Ratio 1.2 (1.1-2.2); Alkaline Phosphatase 75 Units/L (34-104); Aspartate Amino Transferase 21 Units/L (13-39); BUN/Creatinine Ratio 16 (6-26); Bilirubin,Direct 0.1 mg/dL (0.0-0.2); Bilirubin,Indirect 0.2 mg/dL (0.0-1.0); Bilirubin,Total 0.3 mg/dL (0.3-1.0); Blood Urea Nitrogen 10 mg/dL (8-23); Calcium 8.6 mg/dL (8.6-10.3); Carbon Dioxide 28 mEq/L (23-29); Chloride 105 mEq/L (98-107); Globulin 3.3 g/dL (2.4-3.5); Glucose 113 mg/dL (70-105); Magnesium 1.9 mg/dL (1.6-2.6); Osmolality,Calculated 292 (280-300); Phosphorous 2.9 mg/dL (2.7-4.5); Potassium 3.9 mEq/L (3.5-5.1); Sodium 141 mEq/L (136-145); Total Protein 7.4 g/dL (6.4-8.9); Troponin I < 0.03 ng/mL (< 0.04)
[2022-06-23 20:35] LABS: VBG HCO3 29 mEq/L (21-27); VBG PCO2 62 mmHg (41-51); VBG PH 7.29 pH Units (7.32-7.42); VBG PO2 53 mmHg (25-50)
[2022-06-23 20:43] LABS: INR 1.4; Prothrombin Time 15.8 Seconds (9.4-12.1)
[2022-06-24] MEDS ORDERED: Ondansetron 4 MG/2 ML VIAL IVP PRN (04:13)
[2022-06-24] MEDS ORDERED: Naloxone 0.4 MG/ML INJ IVP PRN (04:13)
[2022-06-24] MEDS ORDERED: Melatonin 3 MG TABLET PO PRN (04:13)
[2022-06-24] MEDS ORDERED: Acetaminophen 325 MG TABLET PO PRN (04:13)
[2022-06-24] MEDS ORDERED: Dextrose Gel 15 GM/37.5 ML TUBE PO PRN ×2 (04:18)
[2022-06-24] MEDS ORDERED: *HR* Dextrose 50 % in Water (Syg) 50 ML SYRINGE IVP PRN (04:18)
[2022-06-24] MEDS ORDERED: Benzonatate 100 MG CAPSULE PO PRN (04:18)
[2022-06-24] MEDS ORDERED: D5% in Water 1,000 ML IVC PRN (04:18)
[2022-06-24] MEDS ORDERED: Remdesivir 200 MG in 0.9 % Sodium Chloride 100 ML IVPB ONE (06:00)
[2022-06-24] MEDS: Ipratropium 1 PUFF INHALER IH SCH ×3 (11:00→22:40)
[2022-06-24] MEDS: *HR* Enoxaparin 40 MG/0.4 ML SYRINGE SQ SCH (12:09)
[2022-06-24] MEDS: Insulin LISPRO 300 UNITS/3 ML VIAL SUBQ SCH ×3 (12:10→16:52)
[2022-06-24 14:07] LABS: Mean Corpuscular Hemoglobin 31.1 pg (28.0-33.3); Red Cell Distribution Width 14.6 % (11.5-14.5)
[2022-06-24 14:09] LABS: Basophils # 0.1 K/mcL (0.0-0.2); Basophils % 0.5 %; Eosinophils # 0.2 K/mcL (0.0-0.6); Eosinophils % 2.4 %; Hemoglobin 12.3 g/dL (12.9-16.9); Immature Granulocytes % 0.3 % (0-4); Immature Platelets 15.8 % (1.1-6.1); Lymphocytes # 1.6 K/mcL (0.6-4.6); Lymphocytes % 16.6 %; Mean Corpuscular HGB Conc 33.2 g/dL (31.6-35.5); Mean Corpuscular Volume 93.7 fL (83.0-100.0); Mean Platelet Volume 13.2 fL (9.4-12.4); Monocytes # 0.9 K/mcL (0.0-1.3); Monocytes % 9.6 %; Neutrophils # 6.8 K/mcL (1.6-8.9); Platelet Count 124 K/mcL (140-400); Red Blood Count 3.95 M/mcL (4.19-5.50); Segmented Neutrophils % 70.6 %; White Blood Count 9.6 K/mcL (4.3-11.1)
[2022-06-24 14:32] LABS: Alanine Aminotransferase 9 Units/L (7-52); Albumin 3.4 g/dL (3.5-5.7); Albumin/Globulin Ratio 1.3 (1.1-2.2); Alkaline Phosphatase 62 Units/L (34-104); Aspartate Amino Transferase 18 Units/L (13-39); BUN/Creatinine Ratio 24 (6-26); Bilirubin,Direct 0.1 mg/dL (0.0-0.2); Bilirubin,Indirect 0.3 mg/dL (0.0-1.0); Bilirubin,Total 0.4 mg/dL (0.3-1.0); Blood Urea Nitrogen 12 mg/dL (8-23); C-Reactive Protein 75 mg/L (Less than 10); Calcium 8.3 mg/dL (8.6-10.3); Carbon Dioxide 25 mEq/L (23-29); Chloride 105 mEq/L (98-107); Globulin 2.6 g/dL (2.4-3.5); Glucose 103 mg/dL (70-105); Osmolality,Calculated 290 (280-300); Potassium 3.8 mEq/L (3.5-5.1); Sodium 140 mEq/L (136-145)
[2022-06-24] MEDS: Artificial Tears SOLN 15 ML BOTTLE BOTH EYES SCH ×3 (16:51→22:06)
[2022-06-24] MEDS ORDERED: Ciprofloxacin HCL Soln 5 ML BOTTLE LEFT EYE SCH (20:00)
[2022-06-24] MEDS: Ciprofloxacin HCL Soln 5 ML BOTTLE BOTH EYES SCH (20:50)
[2022-06-24] MEDS ORDERED: Insulin LISPRO 300 UNITS/3 ML VIAL SUBQ SCH (21:00)
[2022-06-25] MEDS: Ciprofloxacin HCL Soln 5 ML BOTTLE BOTH EYES SCH ×4 (01:00→13:11)
[2022-06-25 03:14] LABS: Basophils % 0.2 %; Eosinophils % 0.1 %; Hematocrit 38.3 % (37.5-50.1); Hemoglobin 12.7 g/dL (12.9-16.9); Immature Granulocytes % 0.2 % (0-4); Immature Platelets 18.9 % (1.1-6.1); Lymphocytes # 1.5 K/mcL (0.6-4.6); Lymphocytes % 16.9 %; Mean Corpuscular HGB Conc 33.2 g/dL (31.6-35.5); Mean Corpuscular Hemoglobin 31.2 pg (28.0-33.3); Mean Corpuscular Volume 94.1 fL (83.0-100.0); Mean Platelet Volume 13.6 fL (9.4-12.4); Monocytes # 0.5 K/mcL (0.0-1.3); Monocytes % 5.3 %; Neutrophils # 6.7 K/mcL (1.6-8.9); Platelet Count 117 K/mcL (140-400); Red Blood Count 4.07 M/mcL (4.19-5.50); Red Cell Distribution Width 14.4 % (11.5-14.5); Segmented Neutrophils % 77.3 %; White Blood Count 8.6 K/mcL (4.3-11.1)
[2022-06-25 03:33] LABS: Alanine Aminotransferase 12 Units/L (7-52); Albumin 3.4 g/dL (3.5-5.7); Albumin/Globulin Ratio 1.3 (1.1-2.2); Alkaline Phosphatase 59 Units/L (34-104); Aspartate Amino Transferase 21 Units/L (13-39); BUN/Creatinine Ratio 27 (6-26); Bilirubin,Indirect 0.4 mg/dL (0.0-1.0); Bilirubin,Total 0.4 mg/dL (0.3-1.0); Blood Urea Nitrogen 17 mg/dL (8-23); Calcium 8.6 mg/dL (8.6-10.3); Carbon Dioxide 29 mEq/L (23-29); Chloride 103 mEq/L (98-107); Globulin 2.7 g/dL (2.4-3.5); Glucose 284 mg/dL (70-105); Osmolality,Calculated 296 (280-300); Potassium 4.7 mEq/L (3.5-5.1); Sodium 137 mEq/L (136-145); Total Protein 6.1 g/dL (6.4-8.9)
[2022-06-25 05:38] VITALS: PULSE 71
[2022-06-25] MEDS: *HR* Enoxaparin 40 MG/0.4 ML SYRINGE SQ SCH (05:50)
[2022-06-25] MEDS ORDERED: Remdesivir 100 MG in 0.9 % Sodium Chloride 100 ML IVPB SCH (06:00)
[2022-06-25 08:08] VITALS: BP 136/62; TEMP 97.3; O2SAT 99
[2022-06-25] MEDS: Artificial Tears SOLN 15 ML BOTTLE BOTH EYES SCH ×2 (10:43→13:11)
[2022-06-25] MEDS: Insulin LISPRO 300 UNITS/3 ML VIAL SUBQ SCH ×2 (10:43→13:04)
== END 2022-06-25 15:50 | DRG 871 ==
LOC: 2NENU 18:45 → EMEROOARM 18:45 → 2NENU 06-24 11:53 → SUATTDRO 06-24 12:01
PROVIDERS: ADMIT Internal Medicine; ATTEND Internal Medicine